=== PATIENT | female | born 1965 | race Caucasian/White ===

== ENCOUNTER 2019-10-31 10:58 | Outpatient (RCR) | payer MEDICARE, SELFPAY ==
--- NOTE | 2019-10-31 12:58 | PTOPEVAL ---
Thank you for referring this patient to [facility]. Please review, sign, date and return this plan of care YECENIA. I agree with and certify that the following plan of care is medically necessary. Referring Physician Date Admitting Provider: Attending Provider: Sofia Adorno MD Referring Provider: *PT Outpatient Evaluation Start: 10/31/19 11:08 Freq: Status: Active Protocol: Document 10/31/19 11:08 NEILMARJMarielena (Rec: 10/31/19 12:49 ASHISH [id number]) Therapy Assessment Status Assessment Status Assessment Status Evaluation Evaluation Information Problem Diagnosis neck pain Onset 08/30/19 Subjective Information Pt. reports 2 months of right Query Text:As Reported By Patient/ sided neck pain. She reports Family that has trouble turning her head to the right. Pt. reports that she underwent MRI which revealed stenosis at C6 -7. She reports that she has been doing neck exercise with mild relief. She reports that she notes pain with nothing imparticular except for turning her head to the right. She reports that driving is difficult due to inability to turn her head. She reprots that her goal for therapy is to reduce her pain. Prior Level of Function Activity Level (Last 3 Months) Hand Dominance Ambidextrous Activity of Daily Living Ability Independent Indoor/Home Mobility Independent Community Mobility Independent Stairs Ability Independent Functional Cognition (Planning, Shopping Independent , Taking Medications) Cooking Yes Cleaning Yes Laundry Yes Shopping Yes Driving Yes Comments Additional Prior Level of Function Pt. has hx of MS. Comments Pain Assessment Timing of Pain Assessment Timing of Pain Assessment Pre-Treatment Pain Scale Pain Scale Used Numeric (1 - 10) Self Report Pain Assessment Right Neck Reported Pain Level 5 Pain Frequency Continuous Current Pain Intensity 5 Lowest Pain Intensity 5 Greatest Pain Intensity 10 Other Pain Aggravating Factors turning the head to the right Pain Relief Interventions Used By Heat Patient
--- NOTE | 2019-11-28 12:00 | PCPTNOTE ---
11/28/19-pt called and cancelled apt secondary to the coronavirus scare. pt will call back next week to possibly reschedule.-HOSEA.
== END 2019-12-28 10:33 | disposition home or self-care (01) ==
LOC: CHSPT 10:58
PROVIDERS: PCP Internal Medicine; Visit Provider Internal Medicine
DX: M54.2 Cervicalgia (principal); M47.892 Other spondylosis, cervical region
CPT/HCPCS: 97014; 97110; 97140; 97161; G0283

== ENCOUNTER 2020-02-14 13:16 | Outpatient (CLI) | payer MEDICARE, SELFPAY ==
--- NOTE | ~2020-02-14 | MR_ITS ---
EXAMINATION: MR brain/brain stem wo/w con EXAM DATE: 02/14/2020 16:04 INDICATION: Multiple sclerosis. TECHNIQUE: Magnetic resonance imaging (MRI) of the brain/brain stem obtained without contrast. Sagit vandana T1, axial diffusion, gradient echo (T2*), T1, T2, FLAIR sequences obtained. Patient was then inj ected with 17 cc intravenous Multihance contrast. Axial and coronal postcontrast T1 weighted sequence s obtained. Comparison is made to prior examination from 12/22/2018. FINDINGS: There is extensive periventricular predominant white matter T2 hyperintensity was thinning of the corpus callosum and dilated ventricular system. Some of these structures involve the corpus ca llosum, consistent with the history provided. There are no areas of abnormal enhancement on the post contrast images, resolution of previously seen active enhancing lesions. Otherwise, no appreciable in terval change. Flow voids are seen in the cerebral arteries on the T2 weighted sequences consistent w ith their expected patency. There are no areas of restricted diffusion to suggest acute infarction. N o extra-axial collections or acute intracranial hemorrhage. No brain mass. IMPRESSION: Resolution of previously seen enhancing multiple sclerosis plaques. Otherwise stable exa m. Reviewed, dictated and finalized at location A. IMPRESSION: Resolution of previously seen enhancing multiple sclerosis plaques . Otherwise stable exam.
--- NOTE | ~2020-02-14 | MR_ITS ---
EXAMINATION: MR cervical spine wo/w con EXAM DATE: 02/14/2020 16:03 INDICATION: Multiple sclerosis. TECHNIQUE: Multi-sequential, multiplanar MR images of the cervical spine were obtained without contra st. Axial T2, axial T2 MERGE sequence. Sagittal T1, T2, T2 fat saturation images also obtained. Com parison is made to prior examination from 10/05/2019. FINDINGS: EXAMINATION: MR cervical spine wo/w con EXAM DATE: 02/14/2020 16:03 INDICATION: Cervical spondylosis, neck pain. TECHNIQUE: Multi-sequential, multiplanar MR images of the cervical spine were obtained without contra st. Axial T2, axial T2 MERGE sequence. Sagittal T1, T2, T2 fat saturation images also obtained. Com parison is made to prior examination from 12/22/2018. FINDINGS: There is no significant interval change. On sagittal sequence within the right side of the spinal cord at the T1 level there is vague region of slightly increased T2 signal intensity measu ring about 4 by 9 mm in craniocaudal dimension, probably sequela from old multiple sclerosis. Similar appearing in size and appearing region in the left side of the spinal cord at C1. Again there is mil d reversal of normal cervical lordosis. There is moderate disc disease at C5-6 and 6-7, mild to moder ate at C3-4 and 4-5. Cervicomedullary junction is normal in appearance. The vertebral bodies are alig art in the AP dimension. There are no suspicious marrow signal abnormalities. Paraspinal soft tissue is unremarkable. There are no areas of abnormal enhancement on the post contrast images. Level by level evaluation: C2-C3: There is a minimal diffuse disc bulge. Uncovertebral joint arthropathy: Mild left. Facet joint arthropathy: Mild. Neural foraminal stenosis: No stenosis. Central canal stenosis: No stenosis. C3-C4: There is a mild diffuse disc bulge. Uncovertebral joint arthropathy: Mild bilateral. Facet joint arthropathy: Mild bilateral. Neural foraminal stenosis: No stenosis. Central canal stenosis: Mild. C4-C5: There is a mild diffuse disc bulge. Uncovertebral joint arthropathy: Mild bilateral. Facet joint arthropathy: Mild bilateral. Neural foraminal stenosis: No stenosis. Central canal stenosis: Mild. C5-C6: There is a mild to moderate diffuse disc bulge. Uncovertebral joint arthropathy: Mild to moderate right, mild left. Facet joint arthropathy: Mild bilateral. Neural foraminal stenosis: Mild to moderate right. Central canal stenosis: Mild. C6-C7: There is a mild diffuse disc bulge. Uncovertebral joint arthropathy: Mild to moderate bilateral. Facet joint arthropathy: Mild. Neural foraminal stenosis: Moderate left, mild to moderate right. Central canal stenosis: Mild. C7-T1: Disc does not extend beyond the endplate margin. Uncovertebral joint arthropathy: None. Facet joint arthropathy: Mild bilateral. Neural foraminal stenosis: No stenosis. Central canal stenosis: No stenosis. No appreciable interval change compared to prior study. IMPRESSION: 1. 2 small spinal cord lesions consistent with quiescent multiple sclerosis. No enhancing lesions or interval change. 2. C6-7 moderate left neural foraminal stenosis, lesser spondylosis at other levels. Reviewed, dictated and finalized at location A. IMPRESSION: 1. 2 small spinal cord lesions consistent with quiescent multiple sclerosis. N o enhancing lesions or interval change. 2. C6-7 moderate left neural foraminal stenosis, lesser spondylosis at other l evels.
--- NOTE | ~2020-02-14 | MR_ITS ---
EXAMINATION: MR thoracic spine wo/w con EXAM DATE: 02/14/2020 16:02 INDICATION: Multiple sclerosis. TECHNIQUE: Multi-sequential, multiplanar MR images of the thoracic spine were obtained without contra st. Sagittal T1, T2, T2 fat saturation, axial T2 weighted images reviewed. Axial T1 weighted sequenc e. Patient was then injected with 17 mL Multihance intravenous contrast and reimaged. Postcontrast axial and sagittal T1-weighted fat saturation sequences were obtained. Comparison is made to prior ex amination from 12/22/2018. FINDINGS: There are small T2 hyperintense regions within the right posterior lateral aspect of the sp inal cord at T1 and T3 as previously seen. Several other vague hyperintensities located more inferior ly are also suspected, difficult to specifically confirm or exclude whether or not these were present on prior study. Appearance is consistent with quiescent multiple sclerosis. No enhancing lesions to suggest active disease. There is mild thoracic spondylosis without stenosis. There are no suspicious marrow signal abnormalit ies. Paraspinal soft tissue is unremarkable. There are no areas of abnormal enhancement on the post c ontrast images. IMPRESSION: Several chronic appearing small vague thoracic cord signal abnormalities likely quiescent multiple sclerosis. Reviewed, dictated and finalized at location A. IMPRESSION: Several chronic appearing small vague thoracic cord signal abnormal ities likely quiescent multiple sclerosis.
[2020-02-14 14:24] LABS: Estimated Glomerular Filt Rate > 60
== END 2020-02-14 13:17 | disposition home or self-care (01) ==
PROVIDERS: PCP Internal Medicine; Visit Provider Psychiatry & Neurology Neurology
DX: G35 Multiple sclerosis (principal); M48.02 Spinal stenosis, cervical region
CPT/HCPCS: 36415; 70553; 72156; 72157; A9577

== ENCOUNTER 2020-04-09 10:25 | Outpatient (CLI) | payer MEDICARE, SELFPAY ==
--- NOTE | ~2020-04-09 | XR_ITS ---
EXAMINATION: XR lumbar spine 2-3V DATE: 04/09/2020 10:48 INDICATION: Back pain TECHNIQUE: Anteroposterior and lateral views of the lumbar spine, and cone-down lateral view of the l umbosacral junction were obtained. COMPARISON: None. FINDINGS: There is no fracture, dislocation, or subluxation. The vertebral body heights and alignment are normal. There is mild loss of intervertebral disc space height at L3-4 and L5-S1. Degenerative o steophytes project from the anterior endplates of multiple vertebral bodies. There is moderate lower lumbar spondylosis. A large volume of colonic stool is present. IMPRESSION: 1. Mild lumbar spondylosis without acute findings. Reviewed, dictated and finalized at location B.
--- NOTE | ~2020-04-09 | XR_ITS ---
EXAMINATION: XR ankle RT min 3V INDICATION: Right ankle pain TECHNIQUE: Four views of the right ankle are obtained. COMPARISON: None available FINDINGS: There is no fracture, dislocation, or subluxation. A plantar calcaneal enthesophyte is note d. The bones, soft tissues, and joint spaces are otherwise normal. IMPRESSION: 1. No acute osseous abnormality. Reviewed, dictated and finalized at location B.
== END 2020-04-09 10:26 | disposition home or self-care (01) ==
LOC: CHSIMG 10:27
PROVIDERS: PCP Internal Medicine; Visit Provider Internal Medicine
DX: S99.911A Unspecified injury of right ankle, initial encounter (principal); S39.92XA Unspecified injury of lower back, initial encounter
CPT/HCPCS: 72100; 73610

== ENCOUNTER 2020-04-19 16:17 | Outpatient (RCR) | payer MEDICARE, SELFPAY ==
--- NOTE | 2020-04-27 11:01 | PCPTNOTE ---
04/27/20- pt cancelled apt yesterday. -
--- NOTE | 2020-05-15 17:13 | PTOPEVAL ---
Thank you for referring Lashell Tucker to [facility].? The patient is scheduled to be seen for therapy? ____x/week for ___ weeks. Please review, sign, date and return this plan of care YECENIA. I agree with and certify that the following plan of care is medically necessary. Referring Physician Date Admitting Provider: Attending Provider: Sofia Adorno MD Referring Provider: *PT Outpatient Evaluation Start: 04/19/20 16:29 Freq: Status: Active Protocol: Document 04/19/20 16:[address] [facility] (Rec: 04/19/20 16:[address] [facility] [id number]) Therapy Assessment Status Assessment Status Assessment Status Evaluation Evaluation Information Problem Diagnosis low back and R ankle pain Onset 04/09/20 Subjective Information patient reports she fell in Query Text:As Reported By Patient/ her garage about 3 week ago. Family she reports she was not using her walker at the time. she reports she was holding onto her when she tripped over carpet. she reports she now has pain in the low back and the R ankle. she reports her R ankle/foot was bent behind her. she reports she had imaging of the back and ankle. she presents with arthritis. Prior Level of Function Comments Additional Prior Level of Function prior to her fall, no ankle Comments pain and minimal back pain. she reports she was able to transition in and out of bed independently without pain. she reports now she has increased pain getting in and out of bed. she reports she also has difficutly getting up and moving from sitting or resting. she reports increased pain in the ankle with movement into DF and walking. Pain Assessment Timing of Pain Assessment Timing of Pain Assessment Assessment Pain Scale Pain Scale Used Numeric (1 - 10) Self Report Pain Assessment Right Ankle(s) Reported Pain Level 2 Lowest Pain Intensity 2 Greatest Pain Intensity 10 Lower Back Reported Pain Level 3 Lowest Pain Intensity 1 Greatest Pain Intensity 9 Pain Score Pain Score 3,2: Self Report Lower Extremity Range of M
--- NOTE | 2020-06-06 11:56 | PTOPEVAL ---
Thank you for referring Lashell Tucker to [facility].? The patient is scheduled to be seen for therapy? ____x/week for ___ weeks. Please review, sign, date and return this plan of care YECENIA. I agree with and certify that the following plan of care is medically necessary. Referring Physician Date Admitting Provider: Attending Provider: Sofia Adorno MD Referring Provider: *PT Outpatient Evaluation Start: 04/19/20 16:29 Freq: Status: Active Protocol: Document 06/06/20 11:04 [facility] (Rec: 06/06/20 11:54 [facility] [id number]) Therapy Assessment Status Assessment Status Assessment Status Re-evaluation Evaluation Information Problem Diagnosis low back and R ankle pain Subjective Information patient reports she feels Query Text:As Reported By Patient/ worse in the top of her R Family ankle. she reports it will continually get stiff with any rest, and makes it very hard to get up and walk or stand initially. Pain Assessment Timing of Pain Assessment Timing of Pain Assessment Assessment Pain Scale Pain Scale Used Numeric (1 - 10) Self Report Pain Assessment Right Ankle(s) Reported Pain Level 8 Lowest Pain Intensity 5 Greatest Pain Intensity 9 Lower Back Reported Pain Level 0 Pain Score Pain Score 8,0: Self Report Lower Extremity Range of Motion Ankle/Foot Range of Motion Bilateral Foot/Toe Range of Motion Comments R ankle arom DF = 15 degrees, PF = 55 degrees Lower Extremity Muscle Strength Testing General Lower Extremity Strength Gross Lower Extremity Strength 5/5 R ankle strength overall Muscle Length Testing Muscle Length Testing Gastrocnemius Length (L) WFL,(R) Mild Tightness Gait Assessment Gait Assessment Additional Ambulation Comments decreased R LE stance time and weight bearing General Exercise General Exercises Exercise Description -prom of right foot x 15 min Query Text:Record Sets, Reps, -5 minutes re-evaluation Resistance, and Position -4 way ankle TB blue x20 each Modalities Electrical Stimulation Right Dorsal Foot Stimulation Type Interferential Equipment Setting Preset 1 Treatment Duration (minutes) 15 In Conjunctions With Hot Pack Patient Position Semi-Reclined Reason For Treatment Pain Management,Soft Tissue Tightness/Spasms Response to Treatment for Contributing Reduce Pain,Reduce Soft Tissue to Therapeutic Activity Tightness/Spasms PT Clinical Summary Clinical Summary Protocol: PTEVCODE PT Clinical Summary mrs. tucker presents this
== END 2020-06-06 23:59 | disposition home or self-care (01) ==
LOC: CHSPT 16:17
PROVIDERS: PCP Internal Medicine; Visit Provider Internal Medicine
DX: M54.5 Low back pain (principal); M53.3 Sacrococcygeal disorders, not elsewhere classified; M25.571 Pain in right ankle and joints of right foot
CPT/HCPCS: 97014; 97110; 97140; 97161; G0283

== ENCOUNTER 2020-06-25 10:31 | Outpatient (CLI) | payer MEDICARE, SELFPAY ==
[2020-06-25 10:59] LABS: Basophils Percent Auto 0.5 % (0.2-1.2); Eosinophils Percent Auto 0.7 % (0-4.4); Hematocrit 39.8 % (37.0-47.0); Hemoglobin 13.2 g/dL (12.0-15.0); Immature Granulocyte Absolute 0.01 K/mm3 (0.00-0.031); Immature Granulocyte Percent A 0.2 % (0-0.5); Lymphocytes Absolute Auto 0.15 K/mm3 (0.9-3.2); Lymphocytes Percent Auto 3.4 % (18.3-44.2); Mean Corpuscular HGB Conc 33.2 g/dl (32-36); Mean Corpuscular Hemoglobin 29.3 pg (26-34); Mean Corpuscular Volume 88.2 fl (80-100); Mean Platelet Volume 10.3 fl (7.4-10.4); Monocytes Absolute Auto 0.5 K/mm3 (0.1-0.6); Monocytes Percent Auto 11.1 % (2.6-8.5); Neutrophils Absolute Auto 3.7 K/mm3 (1.3-6.7); Neutrophils Percent Auto 84.1 % (45.5-73.1); Platelet Count Result 236 k/mm3 (150-375); Red Blood Count 4.51 M/mm3 (4.2-5.4); Red Cell Distribution Width 12.9 % (11.5-14.5); White Blood Count 4.4 K/mm3 (4.5-10.0)
[2020-06-25 12:58] LABS: Alanine Aminotransferase 28 U/L (4-35); Albumin Level 4.1 g/dL (3.5-5.1); Alkaline Phosphatase 108 U/L (38-126); Anion Gap 8 mmol/L (8-16); Aspartate Amino Transferase 28 U/L (14-36); Bilirubin,Total 0.6 mg/dL (0.2-1.3); Blood Urea Nitrogen 18 mg/dL (7-17); Calcium 9.8 mg/dL (8.4-10.2); Carbon Dioxide 27 mmol/L (22-30); Chloride 104 mmol/L (98-107); Estimated Glomerular Filt Rate > 60; Glucose 115 mg/dL (65-105); Potassium 4.5 mmol/L (3.4-5.0); Sodium 139 mmol/L (137-145)
[2020-06-25 13:10] LABS: Immunoglobulin A 59 mg/dL (70-400); Immunoglobulin G 528 mg/dL (700-1600); Immunoglobulin M 163 mg/dL (40-230)
== END 2020-06-25 10:32 | disposition home or self-care (01) ==
LOC: ANHLAB 10:32
PROVIDERS: PCP Internal Medicine; Visit Provider Internal Medicine Hematology & Oncology
DX: D80.9 Immunodeficiency with predominantly antibody defects, unspecified (principal)
CPT/HCPCS: 36415; 80053; 82784; 85025

== ENCOUNTER 2020-11-14 07:06 | Outpatient (CLI) | payer MEDICARE, SELFPAY ==
--- NOTE | ~2020-11-14 | MR_ITS ---
EXAMINATION: MR foot RT wo con, MR ankle RT wo con DATE: 11/14/2020 09:59 INDICATION: Right foot and ankle pain TECHNIQUE: 1. Magnetic resonance imaging (MRI) of the right ankle and hindfoot was performed without intravenous contrast. Sequences included axial, sagittal and coronal PD-weighted FSE and PD-weighted FS FSE. 2. MRI of the right fore/mid foot was performed without intravenous contrast. Sequences included sagi ttal T1-weighted FSE, sagittal fluid sensitive FSE STIR, coronal PD-weighted FS FSE, coronal T1-weigh megha FSE, axial PD-weighted FS FSE, and axial PD-weighted FSE. COMPARISON: None. FINDINGS: Medial ankle ligaments: Deep and superficial deltoid ligaments as well as the spring ligament are normal. Lateral ankle ligaments: The anterior and posterior inferior tibiofibular ligaments are normal. The anterior talofibular, calc aneofibular and posterior talofibular ligaments are normal. Forefoot ligaments: Lisfranc ligament ligament is normal. The collateral ligament complex at the metatarsophalangeal and interphalangeal joints appear normal. Tendons: Achilles tendon is normal. The peroneus longus and brevis tendons are normal. The tibialis anterior a nd extensor hallucis longus and extensor digitorum longus tendons are normal. The tibialis posterior, flexor digitorum longus and flexor hallucis longus tendons are normal. Plantar fascia: Small plantar calcaneal spur at the calcaneal origin of the otherwise normal plantar aponeurosis. No surrounding edema to suggest acute plantar fasciitis. Bones/other: Bone alignment is normal. No fracture or pathologic marrow replacing process. There is mild osteoarth ritis at the second-fourth tarsal metatarsal joints and at the first metatarsophalangeal joint. Likel y secondary subarticular edema at the second tarsal metatarsal joint. Fluid: Physiologic amount fluid in the joint space. No joint effusions, tenosynovitis, bursitis or other abn ormal fluid collections. IMPRESSION: 1. 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 Reviewed, dictated and finalized at location B. [facility] REPORTER IMPRESSION: 1. 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
== END 2020-11-14 07:07 | disposition home or self-care (01) ==
PROVIDERS: PCP Internal Medicine; Visit Provider Internal Medicine
DX: M25.571 Pain in right ankle and joints of right foot (principal); M79.671 Pain in right foot
CPT/HCPCS: 73718; 73721

== ENCOUNTER 2020-11-15 09:12 | Outpatient (CLI) | payer MEDICARE, SELFPAY ==
--- NOTE | ~2020-11-15 | MM_ITS ---
EXAMINATION: MM screening ryan BI w [facility] HISTORY: Screening TECHNIQUE: Craniocaudal and mediolateral oblique 3-D tomosynthesis images were obtained and synthetic 2-D images were generated. CAD analysis was submitted and interpreted. COMPARISON: Comparison to multiple prior studies sequentially, with oldest reviewed study dated 12/2014. BREAST PARENCHYMAL COMPOSITION: There are scattered areas of fibroglandular density. FINDINGS: There is no evidence of suspicious mass, calcification, or architectural distortion to sugg est malignancy in either breast. There has been no suspicious interval change. IMPRESSION: 1. No mammographic evidence of malignancy. 2. Recommend routine screening mammography in one year. BI-RADS Category 1: Negative Reviewed, dictated and finalized at location A. TING ENGINEER
== END 2020-11-15 09:13 | disposition home or self-care (01) ==
PROVIDERS: PCP Internal Medicine; Visit Provider Obstetrics & Gynecology
DX: Z12.31 Encounter for screening mammogram for malignant neoplasm of breast (principal)
CPT/HCPCS: 77063; 77067

== ENCOUNTER 2021-01-11 09:35 | Outpatient (CLI) | payer MEDICARE, SELFPAY ==
--- NOTE | ~2021-01-11 | US_ITS ---
EXAMINATION: US venous doppler [facility] DATE: 01/11/2021 10:15 INDICATION: Left lower limb swelling. TECHNIQUE: Grayscale ultrasound images without and with compression and Doppler ultrasound images of the left lower extremity veins were obtained. COMPARISON: None. FINDINGS: The visualized portions of left common femoral vein, profunda (deep) femoral vein, femoral vein, popl iteal vein, peroneal veins, posterior tibial veins, and greater saphenous vein outflow are patent. IMPRESSION: 1. No deep venous thrombosis. Reviewed, dictated and finalized at location A.
== END 2021-01-11 09:36 | disposition home or self-care (01) ==
LOC: CHSIMG 09:38
PROVIDERS: PCP Internal Medicine; Visit Provider Internal Medicine
DX: M79.89 Other specified soft tissue disorders (principal)
CPT/HCPCS: 93971

== ENCOUNTER 2021-03-25 11:05 | Outpatient (CLI) | payer MEDICARE, SELFPAY ==
[2021-03-25 11:33] LABS: Basophils Percent Auto 0.3 % (0.2-1.2); Eosinophils Percent Auto 0.5 % (0-4.4); Hematocrit 40.3 % (37.0-47.0); Hemoglobin 13.1 g/dL (12.0-15.0); Immature Granulocyte Absolute 0.01 K/mm3 (0.00-0.031); Immature Granulocyte Percent A 0.3 % (0-0.5); Lymphocytes Absolute Auto 0.22 K/mm3 (0.9-3.2); Lymphocytes Percent Auto 5.5 % (18.3-44.2); Mean Corpuscular HGB Conc 32.5 g/dl (32-36); Mean Corpuscular Hemoglobin 28.8 pg (26-34); Mean Corpuscular Volume 88.6 fl (80-100); Mean Platelet Volume 10.1 fl (7.4-10.4); Monocytes Absolute Auto 0.4 K/mm3 (0.1-0.6); Monocytes Percent Auto 10.3 % (2.6-8.5); Neutrophils Absolute Auto 3.3 K/mm3 (1.3-6.7); Neutrophils Percent Auto 83.1 % (45.5-73.1); Platelet Count Result 219 k/mm3 (150-375); Red Blood Count 4.55 M/mm3 (4.2-5.4); Red Cell Distribution Width 12.7 % (11.5-14.5)
[2021-03-25 12:34] LABS: Alanine Aminotransferase 29 U/L (4-35); Albumin Level 4.2 g/dL (3.5-5.1); Alkaline Phosphatase 117 U/L (38-126); Anion Gap 7 mmol/L (8-16); Aspartate Amino Transferase 32 U/L (14-36); Bilirubin,Total 0.8 mg/dL (0.2-1.3); Blood Urea Nitrogen 17 mg/dL (7-17); Calcium 9.8 mg/dL (8.4-10.2); Carbon Dioxide 26 mmol/L (22-30); Chloride 107 mmol/L (98-107); Estimated Glomerular Filt Rate > 60; Glucose 95 mg/dL (65-105); Potassium 4.5 mmol/L (3.4-5.0); Sodium 140 mmol/L (137-145)
[2021-03-25 12:38] LABS: Immunoglobulin A 57 mg/dL (70-400); Immunoglobulin G 510 mg/dL (700-1600); Immunoglobulin M 154 mg/dL (40-230)
== END 2021-03-25 11:06 | disposition home or self-care (01) ==
LOC: ANHLAB 11:09
PROVIDERS: PCP Internal Medicine; Visit Provider Internal Medicine Hematology & Oncology
DX: D80.9 Immunodeficiency with predominantly antibody defects, unspecified (principal)
CPT/HCPCS: 36415; 80053; 82784; 85025

== ENCOUNTER 2021-03-27 11:20 | Outpatient (CLI) | payer MEDICARE, SELFPAY ==
--- NOTE | ~2021-03-27 | XR_ITS ---
EXAMINATION: XR knee LT 3V DATE: 03/27/2021 11:41 INDICATION: Left knee pain and swelling. TECHNIQUE: 3 views of left knee were obtained. COMPARISON: None. FINDINGS: Bone alignment is normal. No fracture. There is mild tricompartmental osteoarthritis. No kn ee joint effusion. There are loose bodies in the joint posteriorly. IMPRESSION: 1. Mild left knee osteoarthritis. 2. Left knee joint loose bodies. Reviewed, dictated and finalized at location A.
== END 2021-03-27 11:21 | disposition home or self-care (01) ==
LOC: CHSIMG 11:23
PROVIDERS: PCP Internal Medicine; Visit Provider Internal Medicine
DX: M25.562 Pain in left knee (principal); M25.462 Effusion, left knee
CPT/HCPCS: 73562

== ENCOUNTER 2021-03-30 09:59 | Outpatient (CLI) | payer MEDICARE, SELFPAY ==
--- NOTE | ~2021-03-30 | MR_ITS ---
EXAMINATION: MR knee LT wo con DATE: 03/30/2021 10:56 INDICATION: Left knee pain and swelling TECHNIQUE: Magnetic resonance imaging (MRI) of the left knee was performed without intravenous contra st. Sequences included coronal PD-weighted FSE, coronal PD-weighted FS FSE, sagittal T2-weighted FSE , sagittal PD-weighted FS FSE and axial PD weighted fat saturated FSE. COMPARISON: Left knee radiographs dated 03/27/2021 FINDINGS: Medial compartment: Medial meniscus is normal. Chondral surface regularity along the anterior to central weightbearing me dial femoral condyle. Cartilage along the medial tibial plateau remains normal. Lateral compartment: Lateral meniscus is normal. Partial-thickness chondral ulceration and deep fissuring along the anteri or to central weightbearing lateral femoral condyle. Additional partial thickness chondral ulceration at the medial side of the lateral tibial plateau along the shoulder of the intercondylar eminence. Patellofemoral compartment: Deep chondral ulceration involving greater than 50% of the cartilage thickness and in places full/saumya r full-thickness at the lateral patellar facet, apical ridge and lateral aspect of the medial facet w hich relatively spares the cephalad portion of the articular cartilage. Additional juxtaposed deep ch ondral ulceration involving the cephalad two thirds of the lateral trochlea. Less severe partial thic kness cartilage loss with some chondral surface irregularity at the medial trochlea and trochlear john ove. Small marginal osteophytes are present. Ligaments and tendons: Anterior and posterior cruciate ligaments are normal. The medial collateral ligament and fibular enrrique ateral ligament complex are normal. The extensor mechanism is normal. The visualized medial and later al hamstring tendons as well as the iliotibial band are normal. Fluid: Physiologic amount of fluid in the joint space. Small Lin's cyst with additional deeper small multi lobulated ganglion cyst which extends anteriorly along the posterior medial margin of the posterior w eightbearing medial femoral condyle. Osseous/other: Normal marrow signal with some red marrow reexpansion in the distal metadiaphyseal region of the femu r. No fracture or pathologic marrow replacing process. Small low signal intensity calcifications post erior to the posterior horn of the medial meniscus, unclear whether it represents dystrophic calcific ation within the capsule or loose osteochondral bodies. Favor the former. IMPRESSION: 1. Tricompartmental osteoarthritis, moderate severity with extensive moderate high-grade chondromalac ia in the patellofemoral compartment and mild with moderate grade chondromalacia in the medial and la teral compartments. 2. Small Lin's cyst. Reviewed, dictated and finalized at location A. IMPRESSION: 1. Tricompartmental osteoarthritis, moderate severity with extensive moderate h igh-grade chondromalacia in the patellofemoral compartment and mild with modera te grade chondromalacia in the medial and lateral compartments. 2. Small Lin's cyst.
== END 2021-03-30 10:00 | disposition home or self-care (01) ==
LOC: CHSIMG 10:01
PROVIDERS: PCP Internal Medicine; Visit Provider Internal Medicine
DX: M25.562 Pain in left knee (principal); M25.462 Effusion, left knee
CPT/HCPCS: 73721

== ENCOUNTER 2021-03-30 22:28 | Emergency (ER) | payer MEDICARE, SELFPAY ==
[2021-03-30 22:45] VITALS: BP 121/72; PULSE 94; RESP 18; TEMP 36.4; O2SAT 94
--- NOTE | 2021-03-30 23:00 | ED.LOWEXIN ---
HPI - Extremity Injury (Lower) General Chief Complaint: Extremity Injury, Lower Stated Complaint: left knee popped had a MRI today Time Seen by Provider: 03/30/21 22:47 Source: patient, family and RN notes reviewed Mode of arrival: ambulatory Limitations: no limitations History of Present Illness HPI Narrative: left knee pain x this PM complaint: knee injury Onset (ago): hour(s) (1) Injury: Left: knee Type of Injury: unknown Place: street/outdoors Severity: moderate Severity scale (1-10): 7 Relieving factors: nothing Exacerbating factors: weight bearing Context: walking Associated symptoms: snap/pop sensation and unable to bear weight Other symptoms: none Related Data Home Medications Medication Instructions Recorded Confirmed atorvastatin 40 mg PO DAILY 03/30/21 03/30/21 ergocalciferol (vitamin D2) 1,250 mcg PO DAILY 03/30/21 03/30/21 paroxetine HCl 40 mg PO DAILY 03/30/21 03/30/21 sumatriptan succinate 100 mg PO PRN PRN 03/30/21 03/30/21 Allergies Allergy/AdvReac Type Severity Reaction Status Date / Time No Known Allergies Allergy Unverified 06/14/15 09:21 Review of Systems Review of Systems: All systems reviewed & are unremarkable except as noted in HPI and below Constitutional: Constitutional: Reports as per HPI and Reports no additional constitutional complaints Eyes: Eyes: Reports as per HPI and Reports no additional eye complaints ENT: Reports system reviewed and no additional complaints, except as documented and Reports as per HPI Cardiovascular: Cardiovascular: Reports as per HPI and Reports no additional cardiovascular complaints Respiratory: Respiratory: Reports as per HPI and Reports no additional respiratory complaints Gastrointestinal: Gastrointestinal: Reports as per HPI and Reports no additional gastrointestinal complaints Genitourinary: Genitourinary: Reports no additional female genitourinary complaints and Reports as per HPI Musculoskeletal: Musculoskeletal: Reports no additional musculoskeletal complaints and Reports as per HPI Integumentary/Breasts: Skin/Breast: Reports system reviewed and no additional complaints, except as docu and Reports as per HPI Neurologic: Reports system reviewed and no additional complaints, except as documented and Reports as per HPI Psychiatric: Psychiatric: Reports no additional psychiatric complaints and Reports as per HPI Endocrine: Endocrine: Reports no additional endocrine complaints and Reports as per HPI Hematologic/Lymphatic: Hematologic/Lymphatic: Reports no additional hematologic/lymphatic complaints and Reports as per HPI Allergic/Immunologic: Allergic/Immunologic: Reports no additional allergic/immunologic complaints and Reports as per HPI [facility] Family History Family History Father Family history of cardiovascular disease Cerebrovascular accident Other Family history of malignant neoplasm Social History Social History Smoking status: Former smoker Alcohol intake: never Exam Const: General: no acute distress and alert Nutritional Appearance: obese Orientation/consciousness: patient oriented x3 HENMT: Head: normal to inspection Ears: external ears normal and TM's normal bilaterally General nose exam: Normal external nose present and Normal nares present Face and sinus: normal facial exam Mouth: Yes moist mucous membranes Eyes: General: appearance normal, both eyes and all related structures Visual Leyva: normal visual leyva by confrontation Conjunctivae: conjunctivae normal Pupils: Equal, round and reactive pupils present EOM: EOMs intact bilaterally Neck: Neck: normal visual inspection and no lymphadenopathy Chest: Chest palpation & inspection: normal inspection of the chest Resp: Effort & Inspection: normal respiratory effort Auscultation: clear to auscultation bilaterally Cardio: Rate: regular ra
[2021-03-30] MEDS: KETOROLAC (*BKC) 60 MG/2 ML VIAL IM (23:08)
[2021-03-30 23:29] VITALS: BP 129/78; PULSE 87; RESP 18; O2SAT 100
== END 2021-03-30 23:32 | disposition home or self-care (01) ==
PROVIDERS: Emergency Provider Emergency Medicine; PCP Internal Medicine
DX: M25.562 Pain in left knee (principal)
CPT/HCPCS: 73721; 96372; 99283; J1885; L1830

== ENCOUNTER 2021-04-17 18:01 | Observation (INO) | payer MEDICARE, SELFPAY ==
--- NOTE | ~2021-04-17 | CT_ITS ---
EXAMINATION: CT brain wo con DATE: 04/17/2021 18:36 INDICATION: Altered mental status. TECHNIQUE: Computed tomography (CT) of the head was performed without intravenous contrast. The mA wa s adjusted according to patient size. Iterative reconstruction technique was employed. The dose-lengt h product was 681.00 mGy-cm. COMPARISON: Head CT 04/16/2018 FINDINGS: Again seen is brain volume loss with ex vacuo dilatation of the bodies and frontal horns of the lateral ventricles. There are scattered areas of low attenuation in the cerebral white matter. T here is no intracranial hemorrhage, acute infarction, or abnormal intracranial mass lesion. The paran david sinuses are clear. The orbits are normal. The mastoid air cells are normal. IMPRESSION: 1. Stable mild nonspecific cerebral white matter disease, which likely represents chronic small vesse l ischemic disease. I discussed this case with Dr. Herrera. Reviewed, dictated and finalized at location A. IMPRESSION: 1. Stable mild nonspecific cerebral white matter disease, which likely represen ts chronic small vessel ischemic disease. I discussed this case with Dr. Caballero ing.
--- NOTE | ~2021-04-17 | US_ITS ---
EXAMINATION: US carotid duplex BI DATE: 04/18/2021 08:16 INDICATION: Encephalopathy. Carotid atherosclerosis and stenosis. TECHNIQUE: Grayscale, color Doppler, and pulsed Doppler images of the cervical carotid arteries were obtained. The degree of vessel stenosis is placed in one of the following categories: normal, <50%, 5 0-69%, >=70% but less than near-occlusion, near-occlusion, or total occlusion. Note that percent sten osis relative to normal distal artery lumen diameter is indirectly measured from velocity measurement s as described by Juan, et al. Radiology 2003; 229:340-346. COMPARISON: 04/23/2012 FINDINGS: RIGHT: The right common carotid artery (CCA) peak systolic velocity (PSV) is 81 cm/s. The right internal car otid artery (ICA) PSV is 59 cm/s. The right ICA end-diastolic velocity (EDV) is 14 cm/s. The right IC A/CCA PSV ratio is 0.7. Grayscale and color Doppler images yield an estimate of <50% diameter reducti on from plaque in the ICA. The external carotid artery (ECA) PSV is 79 cm/s. There is antegrade flow in the right vertebral artery. LEFT: The left CCA PSV is 81 cm/s. The left ICA PSV is 90 cm/s. The left ICA EDV is 27 cm/s. The left ICA/C CA PSV ratio is 1.1. Grayscale and color Doppler images yield an estimate of <50% diameter reduction from plaque in the ICA. The ECA PSV is 79 cm/s. There is antegrade flow in the left vertebral artery. IMPRESSION: 1. <50% stenosis in the right internal carotid artery. 2. <50% stenosis in the left internal carotid artery. Reviewed, dictated and finalized at location A.
[2021-04-17 18:05] VITALS: BP 134/86; PULSE 67; RESP 18; TEMP 36.5; O2SAT 99
[2021-04-17 18:14] LABS: Glucose Point of Care 94 mg/dl (65-105)
--- NOTE | 2021-04-17 18:17 | ECG_ITS ---
Measurements Intervals [place] Rate: 66 P: 145 RI: 169 QRS: -26 QRSD: 87 T: -29 QT: 385 QTc: 403 Interpretive Statements SINUS RHYTHM POSSIBLE LEFT ATRIAL ENLARGEMENT DELAYED PRECORDIAL R/S TRANSITION BORDERLINE T WAVE ABNORMALITY- ANT/INF LEADS BASELINE ARTIFACT- I, II, AVR, AVL BORDERLINE ECG Electronically Signed On 04-18-2021 8:55:27 CDT by Nakul Truong D.O.
[2021-04-17 18:26] LABS: Basophils Absolute Auto 0.02 K/mm3 (0.00-0.10); Basophils Percent Auto 0.4 % (0.0-1.0); Eosinophils Absolute Auto 0.04 K/mm3 (0.02-0.50); Eosinophils Percent Auto 0.7 % (1.0-6.0); Hematocrit 40.2 % (35.0-49.0); Hemoglobin 13.3 g/dL (12.0-15.0); Immature Granulocyte Absolute 0.01 K/mm3 (0.00-0.00); Immature Granulocyte Percent A 0.2 % (0.0-0.0); Lymphocytes Absolute Auto 0.25 K/mm3 (1.10-4.50); Lymphocytes Percent Auto 4.6 % (18.0-42.0); Mean Corpuscular HGB Conc 33.1 g/dL (32.0-36.0); Mean Corpuscular Hemoglobin 29.2 pg (27.0-31.0); Mean Corpuscular Volume 88.2 fL (78.0-102.0); Mean Platelet Volume 10.5 fl (9.2-11.8); Monocytes Absolute Auto 0.55 K/mm3 (0.10-0.90); Neutrophils Absolute Auto 4.6 K/mm3 (1.7-7.2); Neutrophils Percent Auto 84.1 % (50.0-70.0); Platelet Count Result 229 K/mm3 (150-420); Red Blood Count 4.56 M/mm3 (4.20-5.40); Red Cell Distribution Width 12.8 % (11.6-14.4); White Blood Count 5.5 K/mm3 (4.8-10.8)
--- NOTE | 2021-04-17 18:30 | ED.NEUROSD ---
HPI - Neuro Symptoms/Deficit General Chief Complaint: Suspected CVA Stated Complaint: Possible stroke Source: patient Mode of arrival: ambulatory Limitations: no limitations History of Present Illness HPI Narrative: Lashell is a 55F with a PMH of MS and HLD that presented with some AMS that started at 1745. She was reportedly watching TV when she had trouble finding her words. She couldn't remember her husbands name and a few friends names. She stated that she had thoughts but couldn't get the words out. She started improving on the way to the ER. She did not notice any difference in her gait. She and her denied facial droop. Her MS has left her with decreased vision in her right upper outer quadrant and decreased sensation, strength and coordination on the right side. Related Data Home Medications Medication Instructions Recorded Confirmed atorvastatin 40 mg PO DAILY 03/30/21 04/17/21 ergocalciferol (vitamin D2) 1,250 mcg PO DAILY 03/30/21 04/17/21 paroxetine HCl 40 mg PO DAILY 03/30/21 04/17/21 sumatriptan succinate 100 mg PO PRN PRN 03/30/21 04/17/21 fingolimod [Gilenya] 0.5 mg PO DAILY 04/17/21 04/17/21 Allergies Allergy/AdvReac Type Severity Reaction Status Date / Time No Known Allergies Allergy Unverified 06/14/15 09:21 Review of Systems Constitutional: Constitutional: Reports as per HPI and Reports no additional constitutional complaints Eyes: Eyes: Reports as per HPI ENT: Reports system reviewed and no additional complaints, except as documented Cardiovascular: Cardiovascular: Reports no additional cardiovascular complaints Respiratory: Respiratory: Reports no additional respiratory complaints Gastrointestinal: Gastrointestinal: Reports no additional gastrointestinal complaints Genitourinary: Genitourinary: Reports no additional female genitourinary complaints Musculoskeletal: Musculoskeletal: Reports no additional musculoskeletal complaints Integumentary/Breasts: Skin/Breast: Reports system reviewed and no additional complaints, except as docu Neurologic: Reports as per HPI Psychiatric: Psychiatric: Reports no additional psychiatric complaints Endocrine: Endocrine: Reports no additional endocrine complaints Hematologic/Lymphatic: Hematologic/Lymphatic: Reports no additional hematologic/lymphatic complaints Allergic/Immunologic: Allergic/Immunologic: Reports no additional allergic/immunologic complaints [facility] Family History Family History Father Family history of cardiovascular disease Cerebrovascular accident Other Family history of malignant neoplasm Social History Social History Smoking status: Former smoker Alcohol intake: never Exam Const: General: cooperative, healthy appearing, comfortable and no acute distress Other: Ambulates with a rolling walker HENMT: Head: normal to inspection Other: atraumatic Eyes: General: appearance normal, both eyes and all related structures Neck: Neck: normal visual inspection Chest: Chest palpation & inspection: normal inspection of the chest Resp: Effort & Inspection: normal respiratory effort and able to speak in complete sentences Auscultation: clear to auscultation bilaterally Percussion: percussion normal Cardio: Rate: regular rate Rhythm: regular rhythm Other: no murmur Skin: General skin exam: normal color, no rashes or lesions noted and elasticity normal Neuro: General: oriented to person, oriented to place, oriented to time, gait normal (Her gait is at her normal per her ), moves all extremities and Normal light touch and pain sensation (Normal on the left, slightly decrased on the right but this is her normal ) Cranial nerves: Yes CN's II-XII intact bilaterally, Yes Facial sensation intact/muscles of mastication intact and Yes Equal, round and reactive pupils present Cognition (Neuro): normal c
[2021-04-17 18:42] LABS: Albumin Level 3.9 g/dL (3.4-5.0); Anion Gap 12 mmol/L (8-16); Blood Urea Nitrogen 18 mg/dL (7-18); Calcium 9.2 mg/dL (8.5-10.1); Carbon Dioxide 26 mmol/L (21-32); Chloride 103 mmol/L (98-108); Estimated CRCL calculation 67 ml/min; Estimated Glomerular Filt Rate > 60; Glucose 97 mg/dL (70-99); Osmolality Calculated 293 mOsm/kg (285-295); Salicylate 0.7 mg/dL (2.8-20.0); Sodium 141 mmol/L (136-145)
[2021-04-17 18:43] LABS: INR 0.9; Prothrombin Time 10.1 Seconds (9.50-12.10)
[2021-04-17 19:00] VITALS: BP 117/66; PULSE 65; RESP 16; O2SAT 96
[2021-04-17 19:01] LABS: Add Urine Microscopic? YES; Appearance Urine Clear (Clear); Bilirubin Urine Negative (Negative); Blood Urine 1+ (Negative); Color Urine Light Yellow (Yellow); Glucose Urine UA Negative (Negative); Ketones Urine Negative (Negative); Leukocyte Esterase Ur Negative LEU/UL (Negative); Nitrate Urine Negative (Negative); Protein Urine Negative (Negative); Urobilinogen Urine 0.2 mg/dL (0.2-1.0); pH Urine 5.5 (5.0-8.0)
[2021-04-17 19:08] LABS: Amphetamine Screen Urine Negative (Negative); Barbiturate Screen Urine Negative (Negative); Benzodiazepines Screen Urine Negative (Negative); Cannabinoid Screen Urine Negative (Negative); Cocaine Screen Urine Negative (Negative); Methadone Screen Urine Negative (Negative); Opiate Screen Urine Negative (Negative); Phencyclidine Screen Urine Negative (Negative)
[2021-04-17 19:11] LABS: Alanine Aminotransferase 30 U/L (14-59); Alkaline Phosphatase 119 U/L (46-116); Ammonia 10 umol/L (11-32); Aspartate Amino Transferase 17 U/L (15-37); Bilirubin,Total 0.5 mg/dL (0.00-1.00); Creatine Kinase 59 U/L (26-192); Thyroid Stimulating Hormone 1.68 uIU/mL (0.36-3.74); Total Protein 7.2 g/dL (6.4-8.2); Troponin I 4.2 ng/L (0.00-60.4)
[2021-04-17 19:14] LABS: Acetaminophen < 2 ug/mL (10-30); Ethanol < 3 mg/dL (0-6)
[2021-04-17 19:20] LABS: Bacteria Urine Trace /hpf; Squamous Epithelial Cell Urine Moderate /hpf (Few); WBC Urine 0-3 /hpf (0-3)
[2021-04-17 19:31] VITALS: BMI 34.9
[2021-04-17 19:45] VITALS: BP 117/64; PULSE 88; RESP 20; TEMP 36.1; O2SAT 94
[2021-04-17 19:55] VITALS: BP 119/71; PULSE 62; RESP 18; O2SAT 97
--- NOTE | 2021-04-17 21:32 | PC.NURSE ---
Patient admitted to room 227 per w/c from the ER. Patient SBA, is alert and oriented X 3 with no c/o pain.
[2021-04-17 21:51] VITALS: BMI 34.9
[2021-04-17 21:53] VITALS: PULSE 88
[2021-04-17 21:58] VITALS: BP 117/64; PULSE 88; RESP 20; TEMP 36.1; O2SAT 94
[2021-04-18] VITALS: BP 116/66; PULSE 62; RESP 20; TEMP 36.2; O2SAT 95
[2021-04-18] MEDS: HYDROcodone/acetaminophen (*CRX) 5-325 MG TABLET 1 TAB PO (03:56)
[2021-04-18 04:00] VITALS: BP 101/55; PULSE 65; RESP 18; TEMP 35.9; O2SAT 96
--- NOTE | 2021-04-18 07:15 | PC.NURSE ---
Bedside report completed and board updated. Patient reported that she did not sleep very well, but otherwise was feeling fine, and wanted to go home. Patient stated she did not want her morning medications, and would take them when she got home.
[2021-04-18 07:44] VITALS: BP 113/73; PULSE 66; PULSE 74; RESP 18; TEMP 36.6; O2SAT 95
--- NOTE | 2021-04-18 09:00 | PC.NURSE ---
Patient refused to take any of her morning meds. She stated that she would take all of her medication when she gets home. Explained that it may be awhile before that happens, but patient stated that there weren't any medications that were critical, and it would be fine to wait until she gets home.
--- NOTE | 2021-04-18 10:12 | PM.SD2 ---
Same Day Admit/Disch: HPI History of Present Illness Chief complaint: TIA Narrative: Lashell Tucker is a 55 year old female who is admitted under Observation for TIA. Pt was at home when her symptoms started. She states that her right side felt weaker than usual. Her MS affects her right side mostly. She then noticed she was unable to speak what she was thinking and when she did speak it was not making sense. She also forgot her family members names. PMHx includes: MS, Hyperlipidemia, Migraine, Depression. Pt denies CP, SOB, N/V, loss of bowel or bladder function, fevers, chills, changes in medications or dosages. [facility] Past Medical History Medical History (Updated 04/18/21 @ 10:34 by JOSHUA Em) Body mass index [BMI] 32.0-32.9, adult (11/16/18) delivery delivered Depression Migraine Multiple sclerosis Obesity (BMI 30.0-34.9) Surgical History Surgical History (Updated 04/18/21 @ 10:19 by JOSHUA Em) History of cholecystectomy History of tonsillectomy Family History Family History Father Family history of cardiovascular disease Cerebrovascular accident Other Family history of malignant neoplasm Social History Social History Smoking status: Never smoker Second hand tobacco smoke exposure: No Alcohol intake: never Substance use: never Substance use type: does not use Gender identity (if verbalized by the patient): Female Sexual Orientation (if Verbalized by the Patient): Straight or Heterosexual Spiritual care concerns: No Same Day Admit/Disch: Med Pre-admit Medications Home Medications Medication Instructions Recorded Confirmed Type atorvastatin 40 mg PO DAILY 03/30/21 04/17/21 History ergocalciferol (vitamin D2) 1,250 mcg PO DAILY 03/30/21 04/17/21 History ibuprofen 800 mg PO TID #20 tablet 03/30/21 04/17/21 Rx omeprazole magnesium [Prilosec OTC] 20 mg PO BID #20 tablet 03/30/21 04/17/21 Rx paroxetine HCl 40 mg PO DAILY 03/30/21 04/17/21 History sumatriptan succinate 100 mg PO PRN PRN 03/30/21 04/17/21 History fingolimod [Gilenya] 0.5 mg PO DAILY 04/17/21 04/17/21 History Exam Const: General: cooperative, comfortable, no acute distress, alert, awake and Physically active Nutritional Appearance: obese Limitations: no limitations (has Multiple Sclerosis) HENMT: Head: normal to inspection, normocephalic and atraumatic Ears: hearing grossly normal bilaterally Eyes: General: appearance normal, both eyes and all related structures Alignment and Position: alignment normal Eyelids: eyelids normal Conjunctivae: conjunctivae normal EOM: EOMs intact bilaterally Neck: Neck: full ROM and no JVD Resp: Effort & Inspection: normal respiratory effort Auscultation: clear to auscultation bilaterally Cardio: Rate: regular rate Heart sounds: S1 normal heart sound present and S2 normal heart sound present GI: GI Palp: Yes Soft to palpation and No Tenderness to palpation present (GI) Auscultation: normal bowel sounds Skin: General skin exam: normal color and dry skin Neuro: General: oriented to person, oriented to place, oriented to time, moves all extremities, no focal motor deficits and CN's II-XI intact bilaterally Cognition (Neuro): normal cognition Speech: normal speech Motor exam (neuro): 5/5 motor strength present throughout Sensory Exam: normal sensation Extrem: General: no pedal edema Psych: Appearance: grossly normal Mental Status: mental status grossly normal Speech and movement: Normal speech and movement present Affect: normal affect Attitude: cooperative Thought process: Normal thought process present DS: Data Data Completed and Pending Labs on day of discharge: Labs from last 24 hours 04/17/21 04/17/21 04/17/21 18:17 18:17 18:17 WBC 5.5 RBC 4.56 Hgb 13.3 Hct 40.2 MCV 88.[address]
--- NOTE | 2021-04-18 11:30 | ECHO_ITS ---
Patient Info Name: Lashell Tucker Age: 55 years : 1965 Gender: Female HR: 64 bpm Heart Rhythm: Sinus Rhythm Exam Date: 04/18/2021 10:22 AM Exam Location: [facility] Patient Status: Outpatient Admit Date: 04/17/2021 Staff Ordering Physician: Favio Herrera DO Block Machine Operator: Clementina Stevens RDCS Attending Provider: Favio Herrera DO Referring Physician: Sharon GARCIA; Exam Type: CA echo doppler w bubble study Study Info Indications - TIA Complete two-dimensional, color flow and Doppler transthoracic echocardiogram is performed with agitated saline. Contrast/Agitated Saline Contrast/Ag. Saline: Agitated Saline Amount: 40.00 ml Existing IV Access: Yes IV Access Condition: patent with no signs of infiltration Summary 1. Left ventricular chamber dimension is normal. 2. Left ventricular systolic function is normal, estimated at 60-65%. 3. The left ventricular diastolic function is abnormal. 4. E/e' 12 is mildly elevated. 5. There is trace tricuspid valve regurgitation. 6. No pulmonary hypertension, estimated pulmonary arterial systolic pressure is 29 mmHg. Left Ventricle E/e' 12 is mildly elevated. Left ventricular chamber dimension is normal. Left ventricular systolic function is normal, estimated at 60-65%. The left ventricular diastolic function is abnormal. Right Ventricle Right ventricular chamber dimension is normal. Right ventricular systolic function is normal. Left Atria Left atrial chamber dimension is normal. Right Atria Right atrial chamber dimension is normal. Atrial Septum Agitated saline injection opacified right cardiac chambers without shunt to left cardiac chambers. Intact interatrial septum visualized by agitated saline imaging. Aortic Valve The aortic valve is trileaflet. There is no aortic valve stenosis. There is no aortic valve regurgitation. Pulmonic Valve There is no pulmonic regurgitation. Mitral Valve There is no mitral valve stenosis. There is no mitral valve regurgitation. Tricuspid Valve There is trace tricuspid valve regurgitation. No pulmonary hypertension, estimated pulmonary arterial systolic pressure is 29 mmHg. Pericardium/Pleural There is no pericardial effusion. Inferior Vena Cava Normal inferior vena cava with >50% collapse upon inspiration consistent with normal right atrial pressure, 5 mmHg. Aorta The aortic root size at the sinus of Valsalva is normal. Left Ventricular Outflow Tract Name Value Normal LVOT 2D LVOT Diameter 2.0 cm LVOT Doppler LVOT Peak Velocity 91 cm/s LVOT Peak Gradient 3 mmHg LVOT Mean Gradient 1 mmHg LVOT VTI 20 cm LVOT VTI/AV VTI Ratio 0.5 LVOT Stroke Volume 62 ml Pulmonic Valve Name Value Normal PV
[2021-04-18] MEDS: ACETAMINOPHEN 325 MG TABLET 650 MG PO (11:59)
[2021-04-18 12:00] VITALS: BP 119/79; PULSE 67; PULSE 69; RESP 18; TEMP 36.6; O2SAT 97
--- NOTE | 2021-04-18 12:45 | PC.NURSE ---
patient stated that the tylenol was very effective against her headache. Her pain level dropped down to a 1.
[2021-04-18] MEDS: PARoxetine 20 MG TABLET 40 MG PO (14:06)
--- NOTE | 2021-04-18 14:15 | PC.NURSE ---
Patient was discharged home, accompanied by her . Patient went over all the discharge paperwork, and noted the appointment made for her. Patient was medically stable, and left by private vehicle.
== END 2021-04-18 14:15 | disposition home or self-care (01) ==
LOC: CHSED 19:39 → CHS2ND 19:42
PROVIDERS: Admitting Provider Family Medicine; Emergency Provider Family Medicine; PCP Internal Medicine; Visit Provider Family Medicine
DX: G45.9 Transient cerebral ischemic attack, unspecified (principal); G35 Multiple sclerosis; G43.909 Migraine, unspecified, not intractable, without status migrainosus; E78.5 Hyperlipidemia, unspecified; F32.9 Major depressive disorder, single episode, unspecified; Z79.899 Other long term (current) drug therapy
CPT/HCPCS: 36415; 70450; 80053; 80307; 81001; 82140; 82550; 82948; 84443; 84484; 85025; 85610; 93005; 93306; 93880; 96375; 99285; A9270; G0378

== ENCOUNTER 2021-04-29 10:55 | Outpatient (RCR) | payer MEDICARE, SELFPAY ==
--- NOTE | 2021-04-29 11:40 | PTOPEVAL ---
Thank you for referring Lashell Tucker to [facility].? The patient is scheduled to be seen for therapy? __2__x/week for 8 visits. Please review, sign, date and return this plan of care YECENIA. I agree with and certify that the following plan of care is medically necessary. Referring Physician Date Admitting Provider: Attending Provider: Aj Gregorio MD Referring Provider: *PT Outpatient Evaluation Start: 04/29/21 11:11 Freq: Status: Active Protocol: Document 04/29/21 11:11 ASHISH (Rec: 04/29/21 11:40 ASHISH [id number]) Therapy Assessment Status Assessment Status Assessment Status Evaluation Outpatient Past Medical History Neurological History Hx Multiple Sclerosis Yes Cardiovascular History Hx Cardiac Disorders No Significant History Respiratory History Hx Respiratory Disorders No Significant History Gastrointestinal History Hx Gastrointestinal Disorders No Significant History Genitourinary History Hx Genitourinary Disorders No Significant History Musculoskeletal History Hx Musculoskeletal Disorders No Significant History Hematological History Hx Hematological Disorders No Significant History Endocrine History Hx Endocrine Disorders No Significant History HEENT History Hx HEENT Disorders No Significant History Integumentary History Hx Skin Disorders No Significant History Reproductive History Hx Reproductive Disorders No Significant History Psychosocial History Hx Psychiatric Disorders No Significant History Pain History History of Any Previous or Ongoing No Significant History Instance of Pain Anesthesia History Hx Anesthesia Reactions No Significant History Evaluation Information Problem Diagnosis OA left knee Subjective Information Pt. reports that she injured Query Text:As Reported By Patient/ the left knee on 03/30/21. She Family reports she was walking up stairs and felt a pop in the left knee. She reports that she could not put weight on the left knee. she states that she went to the ER initially and her doctor shortly after. She reports that she has improved since the incident and was in a wc initially. She reports she is now using a cane and has returned to driving. She reports that she had a cortisone injection on 04/22/21 which helped to decrease her
--- NOTE | 2021-07-09 09:54 | PCPTNOTE ---
patient has not been to therapy in over a month. as of this date, all progress towards goals will be taken from her most recent evaluation/note. HANK
== END 2021-05-16 16:07 | disposition home or self-care (01) ==
LOC: CHSPT 10:55
PROVIDERS: Visit Provider Orthopaedic Surgery
DX: M17.12 Unilateral primary osteoarthritis, left knee (principal); M25.562 Pain in left knee
CPT/HCPCS: 97014; 97110; 97161; G0283

== ENCOUNTER 2022-01-09 08:38 | Outpatient (CLI) | payer MEDICARE, SELFPAY ==
--- NOTE | ~2022-01-09 | MM_ITS ---
EXAMINATION: MM screening [facility] BI w [place] HISTORY: Screening TECHNIQUE: Craniocaudal and mediolateral oblique 3-D tomosynthesis images were obtained and synthetic 2-D images were generated. CAD analysis was submitted and interpreted. COMPARISON: Comparison to multiple prior studies sequentially, with oldest reviewed study dated 03/2016. BREAST PARENCHYMAL COMPOSITION: There are scattered areas of fibroglandular density. FINDINGS: There is no evidence of suspicious mass, calcification, or architectural distortion to sugg est malignancy in either breast. There has been no suspicious interval change. IMPRESSION: 1. No mammographic evidence of malignancy. 2. Recommend routine screening mammography in one year. BI-RADS Category 1: Negative Reviewed, dictated and finalized at location A.
== END 2022-01-09 08:39 | disposition home or self-care (01) ==
LOC: ANHIMG 08:39
PROVIDERS: Visit Provider Obstetrics & Gynecology
DX: Z12.31 Encounter for screening mammogram for malignant neoplasm of breast (principal)
CPT/HCPCS: 77063; 77067

== ENCOUNTER 2022-02-07 13:13 | Outpatient (CLI) | payer MEDICARE, SELFPAY ==
--- NOTE | ~2022-02-07 | DEXA_ITS ---
Bone Density Report Name: YUAN JOVEL Age: 56 Sex: Female Ethnicity: White Date of : 1965 Indication: postmenopausal; screening for osteoporosis; prior fracture; Referring Provider: Sofia Adorno Study: Bone densitometry was performed. Exam Date: February 07, 2022 Accession number: [id number] Bone Density: Region BMD T-score Z-score Classification AP Spine(L1, L3, L4) 1.073 0.2 1.4 Normal Femoral Neck (Left) 0.763 -0.8 0.3 Normal Total Hip (Left) 0.930 -0.1 0.7 Normal Femoral Neck (Right) 0.735 -1.0 0.1 Normal Total Hip (Right) 0.908 -0.3 0.5 Normal Femoral Neck Mean 0.749 -0.9 0.2 Normal Total Hip Mean 0.919 -0.2 0.6 Normal World Health Organization criteria for BMD impression classify patients as: Normal (T-score at or above -1.0), Osteopenia (T-score between -1.0 and -2.5), or Osteoporosis (T-score at or below -2.5). 10-year Fracture Risk: FRAX not reported because: All T-scores for Spine Total, Hip Total, Femoral Neck at or above -1.0 Clinical Information Provided by Patient: Has had a low trauma fracture Has used the following medications: Vitamin D Patient maximum height was 62 Menopause Age: 45 No regular weight bearing exercise Drinks caffeinated beverages Onset of menses at age 13 Number of children 2 Impression: The patient has normal bone mass. The patient has risk factors, including: previous fracture. Discussion: BONE DENSITY IS ABOVE THE MINIMUM DESIRABLE LEVEL AT ALL SKELETAL SITES TESTED. This patient?s bone mineral density is above the minimum desirable level (T-score -1.0 or better) at all sites measured. The patient should follow a healthful lifestyle (good nutrition with adequate calcium and vitamin D, and appropriate weight-bearing exercise). Follow-Up: Consider repeating this study in 5 years or sooner if there is some new clinical indication. Reported by: Dr. Nader Saul on 02/07/2022 1:39:00 PM. Reviewed, dictated and finalized at location [facility]
== END 2022-02-07 13:14 | disposition home or self-care (01) ==
LOC: CHSIMG 13:15
PROVIDERS: PCP Internal Medicine; Visit Provider Internal Medicine
DX: M81.0 Age-related osteoporosis without current pathological fracture (principal)
CPT/HCPCS: 77080

== ENCOUNTER 2023-01-14 11:35 | Outpatient (CLI) | payer MEDICARE, SELFPAY ==
--- NOTE | ~2023-01-14 | MM_ITS ---
EXAMINATION: MM screening [facility] BI w [place] HISTORY: Screening mammogram TECHNIQUE: Craniocaudal and mediolateral oblique 3-D tomosynthesis images were obtained and synthetic 2-D images were generated. CAD analysis was submitted and interpreted. COMPARISON: 01/01/2022, 11/15/2020, 10/03/2019 BREAST PARENCHYMAL COMPOSITION: There are scattered areas of fibroglandular density. FINDINGS: No suspicious mass, calcification, or architectural distortion are identified in either sherita ast to suggest malignancy. There has been no suspicious interval change. IMPRESSION: 1. No mammographic evidence of malignancy. 2. Recommend routine screening mammography in one year. BI-RADS Category 1: Negative Reviewed, dictated and finalized at location A.
--- NOTE | ~2023-01-14 | US_ITS ---
EXAMINATION: US retroperitoneal comp DATE: 01/14/2023 12:10 INDICATION: Painless hematuria TECHNIQUE: Multiple ultrasound grayscale images of the kidneys were obtained. COMPARISON: 09/21/2018 FINDINGS: The right kidney measures 11.0 x 4.4 x 4.9 cm. The left kidney measures 9.2 x 4.4 x 5.4 cm. The kidne ys demonstrate normal echogenicity. There is no hydronephrosis in either kidney. No stones identifie d. The bladder is normal. IMPRESSION: 1. Normal kidneys without hydronephrosis. Reviewed, dictated and finalized at location B.
== END 2023-01-14 11:36 | disposition home or self-care (01) ==
LOC: CHSIMG 11:36
PROVIDERS: PCP Internal Medicine; Visit Provider Obstetrics & Gynecology
DX: Z12.31 Encounter for screening mammogram for malignant neoplasm of breast (principal); R31.9 Hematuria, unspecified
CPT/HCPCS: 76770; 77063; 77067

== ENCOUNTER 2024-04-19 14:52 | Outpatient (CLI) | payer MEDICARE, SELFPAY ==
--- NOTE | ~2024-04-19 | XR_ITS ---
EXAMINATION: XR chest 2V Exam Date/Time: 04/19/2024 15:00 CDT HISTORY: chronic cough, tachycardia Comparison: 01/25/2018. RESULT: Lines, tubes, and devices: Cholecystectomy clips. Lungs and pleura: Linear left upper lung opacity. Subsegmental left lower lung airspace disease. Per ipheral right midlung opacity. Cardiomediastinal silhouette: Stable. Other: No acute osseous or upper abdominal finding. IMPRESSION: Findings concerning for left lower lung pneumonia. Remaining pulmonary opacities may represent atelec tasis or additional sites of infection. Recommend radiographic follow-up to ensure resolution. Reviewed, dictated and finalized at location K. IMPRESSION: Findings concerning for left lower lung pneumonia. Remaining pulmonary opacitie s may represent atelectasis or additional sites of infection. Recommend radiogr aphic follow-up to ensure resolution.
[2024-04-19 15:24] LABS: Hematocrit 42.4 % (35.0-49.0); Mean Corpuscular Hemoglobin 28.7 pg (27.0-31.0); Mean Corpuscular Volume 86.9 fL (78.0-102.0); Mean Platelet Volume 10.3 fl (9.2-11.8); Platelet Count Result 218 K/mm3 (150-420); Red Blood Count 4.88 M/mm3 (4.20-5.40); Red Cell Distribution Width 13.1 % (11.6-14.4); White Blood Count 6.5 K/mm3 (4.8-10.8)
[2024-04-19 19:05] LABS: Alanine Aminotransferase 25 U/L (14-59); Albumin Level 3.5 g/dL (3.4-5.0); Alkaline Phosphatase 167 U/L (46-116); Anion Gap 13 mmol/L (4-12); Aspartate Amino Transferase 19 U/L (15-37); Bilirubin,Total 0.5 mg/dL (0.00-1.00); Blood Urea Nitrogen 19 mg/dL (7-18); Calcium 8.6 mg/dL (8.5-10.1); Carbon Dioxide 25 mmol/L (21-32); Chloride 103 mmol/L (98-108); Estimated Glomerular Filt Rate 57; Glucose 103 mg/dL (70-99); Osmolality Calculated 294 mOsm/kg (285-295); Potassium 4.1 mmol/L (3.5-5.1); Sodium 141 mmol/L (136-145); Total Protein 6.4 g/dL (6.4-8.2)
== END 2024-04-19 14:53 | disposition home or self-care (01) ==
PROVIDERS: PCP Internal Medicine; Visit Provider Nurse Practitioner Family
DX: R05.9 Cough, unspecified (principal); R00.0 Tachycardia, unspecified; R91.8 Other nonspecific abnormal finding of lung field
CPT/HCPCS: 36415; 71046; 80053; 85027

== ENCOUNTER 2024-04-25 12:23 | Outpatient (CLI) | payer MEDICARE, SELFPAY ==
--- NOTE | ~2024-04-25 | XR_ITS ---
EXAMINATION: XR chest 2V DATE: 04/25/2024 12:54 INDICATION: Cough and pneumonia. TECHNIQUE: Frontal and lateral views of the chest were obtained. COMPARISON: Chest 2 views 04/19/24 FINDINGS: There are airspace opacities in right midlung zone and left lower lung zone. No pleural eff usion or pneumothorax. The heart size is normal. Surgical clips in the right upper quadrant are likel y from cholecystectomy. IMPRESSION: 1. Airspace opacities in right midlung zone and left lower lung zone with interval improvement, consi stent with pneumonia. Reviewed, dictated and finalized at location A. IMPRESSION: 1. Airspace opacities in right midlung zone and left lower lung zone with inter lucy improvement, consistent with pneumonia.
== END 2024-04-25 12:24 | disposition home or self-care (01) ==
PROVIDERS: PCP Internal Medicine; Visit Provider Internal Medicine
DX: R05.9 Cough, unspecified (principal); J18.9 Pneumonia, unspecified organism; R91.8 Other nonspecific abnormal finding of lung field
CPT/HCPCS: 71046

== ENCOUNTER 2024-05-02 12:37 | Outpatient (CLI) | payer MEDICARE, SELFPAY ==
--- NOTE | ~2024-05-02 | XR_ITS ---
EXAMINATION: XR chest 2V DATE: 05/02/2024 13:16 INDICATION: Cough. Pneumonia. TECHNIQUE: Frontal and lateral views of the chest were obtained. COMPARISON: Chest 2 views 04/25/2024 FINDINGS: There is no pneumonia, pleural effusion, or pneumothorax. The heart size is normal. Surgica l clips in the right upper quadrant are likely from cholecystectomy. IMPRESSION: 1. No acute cardiopulmonary disease. Reviewed, dictated and finalized at location A.
== END 2024-05-02 12:38 | disposition home or self-care (01) ==
LOC: CHSIMG 12:41
PROVIDERS: PCP Internal Medicine; Visit Provider Internal Medicine
DX: J18.9 Pneumonia, unspecified organism (principal)
CPT/HCPCS: 71046

== ENCOUNTER 2024-07-19 08:59 | Outpatient (CLI) | payer MEDICARE, SELFPAY ==
[2024-07-19 09:11] LABS: Add Urine Microscopic? NO; Appearance Urine Clear (Clear); Bilirubin Urine Negative (Negative); Blood Urine Trace-intact (Negative); Color Urine Light Yellow (Yellow); Glucose Urine UA Negative (Negative); Ketones Urine Negative (Negative); Leukocyte Esterase Ur Negative (Negative); Nitrate Urine Negative (Negative); Protein Urine Negative (Negative); Specific Grav Ur <= 1.005 (1.010-1.020); Urobilinogen Urine 0.2 mg/dL (0.2-1.0)
== END 2024-07-19 09:00 | disposition home or self-care (01) ==
PROVIDERS: PCP Internal Medicine; Visit Provider Internal Medicine
DX: N39.0 Urinary tract infection, site not specified (principal)
CPT/HCPCS: 81003; 87086; 87088

== ENCOUNTER 2025-02-10 14:27 | Outpatient (CLI) | payer MEDICARE, SELFPAY ==
--- NOTE | ~2025-02-10 | MM_ITS ---
EXAMINATION: MM screening ryan BI w [facility] HISTORY: Screening TECHNIQUE: Craniocaudal and mediolateral oblique 3-D tomosynthesis images were obtained and synthetic 2-D images were generated. CAD analysis was submitted and interpreted. COMPARISON: Comparison to multiple prior studies sequentially, with oldest reviewed study dated 11/2017. BREAST PARENCHYMAL COMPOSITION: Not Dense: The breasts are almost entirely fatty. FINDINGS: There is no evidence of suspicious mass, calcification, or architectural distortion to sugg est malignancy in either breast. There has been no suspicious interval change. IMPRESSION: 1. No mammographic evidence of malignancy. 2. Recommend routine screening mammography in one year. BI-RADS Category 1: Negative Reviewed, dictated and finalized at location A.
--- OUTSIDE RECORDS SUMMARY | 2025-02-10 14:33 | XMS_ITS | Clinical Summary ---
Author Organization [facility] Address [address] [place] [address] Care Team Providers Care Direct Mail Marketer Name Role Phone Unavailable Primary Care Provider Unavailabl e Source Comments [facility],non-owned Affiliates and Associated Physician Practices is amultiple site organization consisting of ambulatory clinics and hospital sitesin [place], [place]. This disclosure is being madepursuant to the Care Everywhere program and may not contain all information available regarding this patient. Last updated 18.[facility] Allergies No known active allergies Medications * Be aware that medications may not be up to date on this document. Alwaysverify current medications with the patient. atorvastatin (LIPITOR) 40 MG tablet Take 40 mg by mouth Active PARoxetine (PAXIL) 40 MG tablet TAKE 1 TABLET BY MOUTH EVERY DAY 12/20/2017 Active propranolol (INDERAL) 10 MG tablet TAKE 1 TABLET BY MOUTH 2 TIMES EVERY DAY 01/26/2019 Active SUMAtriptan (IMITREX) 100 MG tablet Take 100 mg by mouth Active Social History Tobacco Use Types Packs/Day Years Used Date Smoking Tobacco: Never Smokeless Tobacco: Never Comments No Sex and Gender Information Value Date Recorded Sex Assigned at Not on file Legal Sex Female 8:07 PM CDT Gender Identity Not on file Sexual Orientation Not on file Last Filed Vital Signs Vital Sign Reading Time Taken Comments Blood Pressure 122/70 03/11/2020 11:51 AM CDT Pulse 63 03/11/2020 11:51 AM CDT Temperature 36.7 C (98.1 F) 03/11/2020 11:51 AM CDT Respiratory Rate 16 03/11/2020 11:51 AM CDT Oxygen Saturation 98% 03/11/2020 11:51 AM CDT Inhaled Oxygen Concentration - - Weight 88.5 kg (195 lb) 03/11/2020 11:51 AM CDT Height 157.5 cm (5' 2) 03/11/2020 11:51 AM CDT Body Mass Index 35.67 03/11/2020 11:51 AM CDT Plan of Treatment Health Maintenance Due Date Last Done Comments COLOGUARD (AGES 45-75) - COL ON CA SCREENING 1965 COLON MONITORING 1965 COLONOSCOPY - COLON CA SCREENING 1965 CT COLONOGRAPHY - COLON CA SCREENING 1965 Colorectal Cancer Screening 1965 FIT - COLON CA SCREENING 1965 FLEX SIG - COLON CA SCREENING 1965 MAMMOGRAM 1965 HIV SCREENING 1980 HEPATITIS C SCREENING 06/17/1983 DTAP/TDAP/TD VACCINES (1 - Tdap) 1984 HEPATITIS B VACCINE (1 of 3 - 19+ 3-dose series) 1984 PNEUMOCOCCAL VACCINE 50+ (1 of 1 - PCV) 2015 ZOSTER VACCINE (1 of 2) 2015 SCREENING FOR DIABETES 03/11/2020 COVID-19 VACCINE (1 - 2023-2 5 season) 2024 DEPRESSION SCREENING 09/14/2024 INFLUENZA VACCINE (Season Ended) 2025 HIB VACCINE Aged Out No longer eligi ble based on patient's age to complete this topic HPV VACCINE Aged Out No longer eligi ble based on patient's age to complete this topic MENINGOCOCCAL (Group B) VACC INE SHARED DECISION-MAKING Aged Out No longer eligibl e based on patient's age to complete this topic MENINGOCOCCAL GROUPS A/C/Y/W VACCINE Aged Out No longer eligible b ased on patient's age to complete this topic Insurance MEDICARE MEDICARE
--- OUTSIDE RECORDS SUMMARY | 2025-02-10 14:33 | XMS_ITS | Referral Summary ---
Author Organization [facility] Address [address] [place] [address] Care Team Providers Care Physical Geographer Name Role Phone Sofia Adorno MD Primary Care Provider + [phone] Allergies No known active allergies Medications atorvastatin (LIPITOR) 40 mg tablet Take 40 mg by mouth Active ergocalciferol (VITAMIN D) 50,000 unit capsule TAKE 1 CAPSULE BY MOUTH ONE TIME PER WEEK 11/23/2020 Active PARoxetine (PAXIL) 40 mg tablet Take 40 mg by mouth daily 12/20/2020 Active propranoloL (INDERAL) 10 mg tablet Take 10 mg by mouth 2 (two) times a day 12/04/2020 Active SUMAtriptan (IMITREX) 100 mg tablet TAKE 1/2 TO 1 TABLET AT ONSET OF HEADACHE. MAY REPEAT IN 2 HOURS. MAX OF 2 TABS IN 24 HOURS. 11/25/2020 Active fingolimod (GILENYA) 0.5 mg capsuleIndicati ons:relapsing form of multiple sclerosis Take 0.5 mg by mouth daily Active Active Problems Problem Noted Date Diagnosed Date Multiple sclerosis 02/11/2021 Migraine without aura and wi thout status migrainosus, not intractable 02/11/2021 Mild recurrent major depression 02/11/2021 Ganglion cyst 09/01/2012 Anterior tibialis tendinitis 07/23/2010 Plantar fasciitis 07/23/2010 Peroneal tendinitis 07/23/2010 Disorder of breast 05/27/2010 Social History Tobacco Use Types Packs/Day Years Used Date Smoking Tobacco: Former Personal Safety Answer Date Recorded Getting School Help Needed Not on file 11/10 Comments Unknown Sex and Gender Information Value Date Recorded Sex Assigned at Not on file 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 Gender Identity Not on file Sexual Orientation Not on file Last Filed Vital Signs Vital Sign Reading Time Taken Comments Blood Pressure - - Pulse - - Temperature - - Respiratory Rate - - Oxygen Saturation - - Inhaled Oxygen Concentration - - Weight 90.7 kg (200 lb) 02/06/2021 2:29 PM CDT Height 157.5 cm (5' 2) 02/06/2021 2:29 PM CDT Body Mass Index 36.58 02/06/2021 2:29 PM CDT Plan of Treatment Not on file Insurance MEDICARE [facility] [place] Care Teams Physical Geographer Relationship Specialty Start Date End Date Sofia Adorno MD [address] [place] [address] PCP - General Internal Medicine 10/10/20
--- OUTSIDE RECORDS SUMMARY | 2025-02-10 14:33 | XMS_ITS | Clinical Summary ---
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
--- OUTSIDE RECORDS SUMMARY | 2025-02-10 14:33 | XMS_ITS | Data Portability ---
Author Organization [facility], [address] [facility] Neurology (MD) Address [address] [place] [address] Care Team Providers Care Scientific Informatics Project Leader Name Role Phone JENIFER RAE Primary Care Provider SHAHEEN LOPEZ Neurologist Assessment Encounter Date Assessment Date Assessment LastModified by Organization Details LastModified Time 02/15/2024 02/15/2024 In summary,Clementina'sne urological examination todayshowsigns of right optic neuropathy, bilateral pyramidal, and posterior column signs.When taking to account her clinical course, neurological examination, and neuroimaging findings, the diagnosis of relapsing MS is felt to be correct. Given excellent response, she will continue Ocrevus and this will be her primary immunotherapy. Mechanism of action, risks, and benefits were discussed in detail. Risk for malignancy, and opportunistic infections for were also discussed in detail including risk for progressive multifocal leukoencephalopath y (PML). She was also informed that she may withdraw from any treatment option if she wishes to do so. No treatment, and just observation was also discussed as an option. Patient was highly involved in the entire decision making-process. Continue symptomatic MS therapies.For anxity, and insomnia start clonazepam 1 mg HS, advised not to drive if drowsy. Discussed ampyra to help with gait, balance, and leg stamina,strength. This was denied by her insurance. We will try to appeal. For numbness, tingling, neuralgic pain she will start gabapentin 300 mg nightly at bedtime. I informed her that gabapentin will also help her sleep. The dose of gabapentin will be slowly adjusted depending on her clinical response. Gave her instructions to discontinue trazodone. She is due for blood work so i requested CBC, and CMP to be performed prior to her next appointment. Follow-up brain MRI will be performed yearly in order to evaluate disease activity, and response to treatment. Vitamin D, B12, and biotin supplementation are encouraged to prevent deficiency,and disease progression. Regarding diet, you may try Mediterranean diet. This is a healthier option among patients with MS, because of less inflammatory properties compared to general diets. Mediterranean diet in general consists of olive oils, nuts, legumes, oats, beans, fruits, vegetables, lean meats, whole grains. Hydrate well with water, and try to avoid soda,and sweetened beverages. I discussed that live attenuated vaccine is contraindicated. Answered all questions and concerns. Agreed with plans. Voiced understanding [email or web address] Not available 02/15/2024 13:07:17 05/10/2024 05/10/2024 In summary, Clementina's neurological examination today show signs of right optic neuropathy, bilateral pyramidal, and posterior column signs. Baseline MRI show periventricular, juxtacortical, callosal, brainstem, and cervical cord lesions. When taking to account her clinical course, neurological examination, and neuroimaging findings, the diagnosis of relapsing MS is felt to be correct. Given excellent response, she will continue Ocrevus and this will be her primary immunotherapy. Mechanism of action, risks, and benefits were discussed in detail. Risk for malignancy, and opportunistic infections for were also discussed in detail including risk for progressive multifocal leukoencephalopath y (PML). She was also informed that she may withdraw from any treatment option if she wishes to do so. No treatment, and just observation was also discussed as an option. Patient was highly involved in the entire decision making-process. Continue symptomatic MS therapies. For anxiety, and insomnia start clonazepam 1 mg HS, advised not to drive if drowsy. Discussed ampyra to help with gait, balance, and leg stamina, strength. This was denied by her insurance. We will try to appeal. For numbness, tingling, neuralgic pain she will start gabapentin 300 mg nightly at bedtime. I informed her that gabapentin will also help her sleep. The dose of gabapentin will be slowly adjusted depending on her clinical response. Gave her instructions to discontinue trazodone. She is due for blood work so i requested CBC, and CMP to be performed prior to her next appointment. Follow-up brain MRI will be performed yearly in order to evaluate disease activity, and response to treatment. Vitamin D, B12, and biotin supplementation are encouraged to prevent deficiency,and disease progression. Regarding diet, you may try Mediterranean diet. This is a healthier option among patients with MS, because of less inflammatory properties compared to general diets. Mediterranean diet in general consists of olive oils, nuts, legumes, oats, beans, fruits, vegetables, lean meats, whole grains. Hydrate well with water, and try to avoid soda,and sweetened beverages. I discussed that live attenuated vaccine is contraindicated. Answered all questions and concerns. Agreed with plans. Voiced understanding [email or web address] Not available 05/10/2024 11:19:16 05/24/2024 05/24/2024 In summary, Clementina's neurological examination today show signs of right optic neuropathy, bilateral pyramidal, and posterior column signs. Baseline MRI show periventricular, juxtacortical, callosal, brainstem, and cervical cord lesions. When taking to account her clinical course, neurological examination, and neuroimaging findings, the diagnosis of relapsing MS is felt to be correct.Given adverse reaction to ocrevus, this medication will be discontinued. Will start kesimpta next week after UTI is adequately treated. Mechanism of action, risks, and benefits were discussed in detail. Risk for malignancy, and opportunistic infections for were also discussed in detail including risk for progressive multifocal leukoencephalopath y (PML). She was also informed that she may withdraw from any treatment option if she wishes to do so. No treatment, and just observation was also discussed as an option. Patient was highly involved in the entire decision making-process. Continue symptomatic MS therapies. For anxiety, and insomnia start clonazepam 1 mg HS, advised not to drive if drowsy. Discussed ampyra to help with gait, balance, and leg stamina, strength. This was denied by her insurance. We will try to appeal. For numbness, tingling, neuralgic pain she will start gabapentin 300 mg nightly at bedtime. I informed her that gabapentin will also help her sleep. The dose of gabapentin will be slowly adjusted depending on her clinical response. Gave her instructions to discontinue trazodone. She is due for blood work so i requested CBC, and CMP to be performed prior to her next appointment. Follow-up brain MRI will be performed yearly in order to evaluate disease activity, and response to treatment. Vitamin D, B12, and biotin supplementation are encouraged to prevent deficiency,and disease progression. Regarding diet, you may try Mediterranean diet. This is a healthier option among patients with MS, because of less inflammatory properties compared to general diets. Mediterranean diet in general consists of olive oils, nuts, legumes, oats, beans, fruits, vegetables, lean meats, whole grains. Hydrate well with water, and try to avoid soda,and sweetened beverages. I discussed that live attenuated vaccine is contraindicated. Answered all questions and concerns. Agreed with plans. Voiced understanding [email or web address] Not available 05/24/2024 15:28:34 09/01/2024 09/01/2024 In summary, Clementina's neurological examination today show signs of right optic neuropathy, bilateral pyramidal, and posterior column signs. Baseline MRI show periventricular, juxtacortical, callosal, brainstem, and cervical cord lesions. When taking to account her clinical course, neurological examination, and neuroimaging findings, the diagnosis of relapsing MS is felt to be correct.Given adverse reaction to ocrevus, this medication will be discontinued. Will start kesimpta next week after UTI is adequately treated. Mechanism of action, risks, and benefits were discussed in detail. Risk for malignancy, and opportunistic infections for were also discussed in detail including risk for progressive multifocal leukoencephalopath y (PML). She was also informed that she may withdraw from any treatment option if she wishes to do so. No treatment, and just observation was also discussed as an option. Patient was highly involved in the entire decision making-process. Continue symptomatic MS therapies. For anxiety, and insomnia start clonazepam 1 mg HS, advised not to drive if drowsy. Discussed ampyra to help with gait, balance, and leg stamina, strength. For neurogenic bladder, she will try Ditropan 10 mg XL once daily. For numbness, tingling, neuralgic pain she will start gabapentin 300 mg nightly at bedtime. I informed her that gabapentin will also help her sleep. The dose of gabapentin will be slowly adjusted depending on her clinical response. Gave her instructions to discontinue trazodone. She is due for blood work so i requested CBC, and CMP to be performed prior to her next appointment. Follow-up brain MRI will be performed yearly in order to evaluate disease activity, and response to treatment. Vitamin D, B12, and biotin supplementation are encouraged to prevent deficiency,and disease progression. Regarding diet, you may try Mediterranean diet. This is a healthier option among patients with MS, because of less inflammatory properties compared to general diets. Mediterranean diet in general consists of olive oils, nuts, legumes, oats, beans, fruits, vegetables, lean meats, whole grains. Hydrate well with water, and try to avoid soda,and sweetened beverages. I discussed that live attenuated vaccine is contraindicated. Answered all questions and concerns. Agreed with plans. Voiced understanding [email or web address] Not available 09/01/2024 13:33:51 12/14/2024 12/14/2024 In summary, Clementina's neurological examination today show signs of right optic neuropathy, bilateral pyramidal, and posterior column signs. Baseline MRI show periventricular, juxtacortical, callosal, brainstem, and cervical cord lesions. When taking to account her clinical course, neurological examination, and neuroimaging findings, the diagnosis of relapsing MS is felt to be correct.Given adverse reaction to ocrevus, this medication will be discontinued. She began Kesimpta April 2024, tolerates the medication well without major side effects. Mechanism of action, risks, and benefits were discussed in detail. Risk for malignancy, and opportunistic infections for were also discussed in detail including risk for progressive multifocal leukoencephalopath y (PML). She was also informed that she may withdraw from any treatment option if she wishes to do so. No treatment, and just observation was also discussed as an option. Patient was highly involved in the entire decision making-process. Continue symptomatic MS therapies. For anxiety, and insomnia start clonazepam 1 mg HS, advised not to drive if drowsy. Discussed dalfampridine, BID to help with gait, balance, and leg stamina, strength. For neurogenic bladder, she will try Ditropan 10 mg XL once daily. For numbness, tingling, neuralgic pain she will start gabapentin 300 mg nightly at bedtime. I informed her that gabapentin will also help her sleep. The dose of gabapentin will be slowly adjusted depending on her clinical response. Gave her instructions to discontinue trazodone. She is due for blood work so i requested CBC, and CMP to be performed prior to her next appointment. Follow-up brain MRI will be performed yearly in order to evaluate disease activity, and response to treatment. Vitamin D, B12, and biotin supplementation are encouraged to prevent deficiency,and disease progression. Regarding diet, you may try Mediterranean diet. This is a healthier option among patients with MS, because of less inflammatory properties compared to general diets. Mediterranean diet in general consists of olive oils, nuts, legumes, oats, beans, fruits, vegetables, lean meats, whole grains. Hydrate well with water, and try to avoid soda,and sweetened beverages. I discussed that live attenuated vaccine is contraindicated. Answered all questions and concerns. Agreed with plans. Voiced understanding Not available 12/14/2024 14:14:48 Plan of Treatment Reminders Order Date Submit Date Provider Last Modified By Organization Details Last Modified Time Details Appointments Verol diana Bradshaw t 20.EST 2024 01:00P M Dr. Shaheen Lopez Not available Not available Not available Lab CBC w/ auto diff 2024 025 [facility], [address] [place] [address], [id number], 01/03/2025 08:00:45 CMP, serum or plasma 2024 025 [facility], [address] [place] [address], [id number], 01/03/2025 08:00:24 CBC 2023 024 [facility], [address] [place] [address], [id number], 09/01/2024 14:30:18 CMP, serum or plasma 2023 024 [facility], [address] [place] [address], [id number], 09/01/2024 14:58:24 urinal ysis comple te, reflex cultur e 2023 024 [email or web address], [address] [place] [address], [id number], 05/31/2024 12:19:49 urinal ysis comple te, reflex cultur e 2023 024 [facility] (Lab), [address], [place], [address], 05/17/2024 13:58:47 TB (M tuberc ulosis ), IFN-ga mma+mi togen- gamma, blood 2023 024 [email or web address], [address] [place] [address], [id number], 05/17/2024 10:13:08 CBC w/ auto diff 2023 024 [email or web address], [address] [place] [address], [id number], 05/17/2024 10:13:09 CMP, serum or plasma 2023 024 [email or web address], [address] [place] [address], [id number], 05/17/2024 10:13:09 HIV 1+2 Ab + HIV 1 p24 Ag, panel, IA, serum or plasma 2023 024 [email or web address], [address] [place] [address], [id number], 05/17/2024 10:13:09 hepati tis panel (A+B+C ), acute, serum 2023 024 [email or web address], [address] [place] [address], [id number], 05/17/2024 10:13:09 varice lla zoster virus IgG Ab, QN, IA, serum 2023 024 [email or web address], [address] [place] [address], [id number], 05/17/2024 10:13:09 vitami n B12, serum 2023 024 [facility], [address] [place] [address], [id number], 05/18/2024 07:12:20 1,25-d ihydro xyvita min D, QN, serum or plasma 2023 024 [facility], [address] [place] [address], [id number], 05/17/2024 13:58:47 immuno globul ins iga+ig g+igm, quanti tative , serum 2023 024 [facility], [address] [place] [address], [id number], 05/18/2024 07:12:20 EVELYN virus Ab, qual, IA, serum or plasma 2023 024 [email or web address], [address] [place] [address], [id number], 05/17/2024 10:13:10 CBC 2023 024 [facility], [address] [place] [address], [id number], 02/15/2024 16:02:08 CMP, serum or plasma 2023 024 [facility], [address] [place] [address], [id number], 02/15/2024 15:53:15 Referral None record ed. Procedures None record ed. Surgeries None record ed. Imaging MRI, brain, w/wo contra st 2023 024 [facility] (Radiology), [address] [place] [address], [id number], 06/07/2024 18:06:02 MRI, cervic al spine, w/wo contra st 2023 024 [facility] - [facility] (Radiology), [address] [place] [address], [id number], 06/08/2024 10:04:13 Medication Orders Ditrop an XL 10 mg tablet ,exten ded releas e 2023 024 [id number] [address] [place], [address], 09/01/2024 12:53:42 Ampyra 10 mg tablet ,exten ded releas e 2023 025 [id number], [address] [place], [address], 12/14/2024 14:06:00 cephal exin 500 mg capsul e 2023 024 [id number], [address] [place], [address], 08/17/2024 12:45:35 clonaz epam 1 mg tablet 2023 024 [id number] [address] [place], [address], 02/15/2024 13:05:54 Patient TargetsNo targets recorded. Patient InstructionsNo instructions recorded. Reason for Referral None Reported. Results Created Date Observation Date Name Description Value Unit Range Abnormal Flag Note LastModifiedBy Organization Detail LastModifiedTime 02/15/2002/15/2024 CBC CBC Not Available [facility] [address] [place] [address], [id number], 02/15/2024 16:02:07 02/15/2002/15/2024 CBC WBC 5.6 K/uL 3.8-11 .2 Not Available [facility] [address] [place] [address], [id number], 02/15/2024 16:02:07 02/15/20 24 02/15/2024 CBC RBC 4.53 M/uL 3.92-5 .10 Not Available [facility] [address] [place] [address], [id number], 02/15/2024 16:02:07 02/15/20 24 02/15/2024 CBC HGB 13.0 g/dL 11.8-1 5.3 Not Available [facility] [address] [place] [address], [id number], 02/15/2024 16:02:07 02/15/20 24 02/15/2024 CBC HCT 39.1 % 36.5-4 4.8 Not Available [facility] [address] [place] [address], [id number], 02/15/2024 16:02:07 02/15/20 24 02/15/2024 CBC MCV 86.3 fL 80.0-9 9.0 Not Available [facility] [address] [place] [address], [id number], 02/15/2024 16:02:07 02/15/20 24 02/15/2024 CBC MCH 28.7 pg 25.5-3 3.6 Not Available [facility] [address] [place] [address], [id number], 02/15/2024 16:02:07 02/15/20 24 02/15/2024 CBC MCHC 33.2 g/dL 32.0-3 6.0 Not Available [facility] [address] [place] [address], [id number], 02/15/2024 16:02:07 02/15/20 24 02/15/2024 CBC RDW-SD 40.4 fL 35.1 - 46.3 Not Available [facility] [address] [place] [address], [id number], 02/15/2024 16:02:07 02/15/20 24 02/15/2024 CBC plt 266 K/uL 130-40 0 Not Available [facility] [address] [place] [address], [id number], 02/15/2024 16:02:07 02/15/20 24 02/15/2024 CBC MPV 11.3 fL 9.3-12 .8 Not Available [facility] [address] [place] [address], [id number], 02/15/2024 16:02:07 02/15/20 24 02/15/2024 CMP, serum or plasm a comp. met. panel Not Available [facility] [address] [place] [address], [id number], 02/15/2024 16:39:56 02/15/20 24 02/15/2024 CMP, serum or plasm a sodium 141 mmol/ L 136-14 6 Not Available [facility] [address] [place] [address], [id number], 02/15/2024 16:39:56 02/15/20 24 02/15/2024 CMP, serum or plasm a potassium 4.8 mmol/ L 3.5-5. 1 Not Available [facility] [address] [place] [address], [id number], 02/15/2024 16:39:56 02/15/20 24 02/15/2024 CMP, serum or plasm a chloride 107 mmol/ L 98-110 Not Available [facility] [address] [place] [address], [id number], 02/15/2024 16:39:56 02/15/20 24 02/15/2024 CMP, serum or plasm a CO2 26 mEq/L 20-32 Not Available [facility] [address] [place] [address], [id number], 02/15/2024 16:39:56 02/15/20 24 02/15/2024 CMP, serum or plasm a anion gap 13 mmol/ L 10-22 Not Available [facility] [address] [place] [address], [id number], 02/15/2024 16:39:56 02/15/20 24 02/15/2024 CMP, serum or plasm a glucose 103 mg/dL 70-100 high Not Available [facility] [address] [place] [address], [id number], 02/15/2024 16:39:56 02/15/20 24 02/15/2024 CMP, serum or plasm a calcium 9.5 mg/dL 8.4-10 .4 Not Available [facility] [address] [place] [address], [id number], 02/15/2024 16:39:56 02/15/20 24 02/15/2024 CMP, serum or plasm a total protein 6.2 g/dL 6.4-8. 3 low Not Available [facility] [address] [place] [address], [id number], 02/15/2024 16:39:56 02/15/20 24 02/15/2024 CMP, serum or plasm a albumin 4.4 g/dL 3.5-5. 3 Not Available [facility] [address] [place] [address], [id number], 02/15/2024 16:39:56 02/15/20 24 02/15/2024 CMP, serum or plasm a ALP 145 U/L 44 - 127 high Not Available [facility] [address] [place] [address], [id number], 02/15/2024 16:39:56 02/15/20 24 02/15/2024 CMP, serum or plasm a AST (SGOT) 17 U/L 10-40 Not Available [facility] [address] [place] [address], [id number], 02/15/2024 16:39:56 02/15/20 24 02/15/2024 CMP, serum or plasm a total bilirubin 0.5 mg/dL 0.2-1. 0 Not Available [facility] [address] [place] [address], [id number], 02/15/2024 16:39:56 02/15/20 24 02/15/2024 CMP, serum or plasm a ALT (SGPT) 17 U/L 8-35 Not Available [facility] [address] [place] [address], [id number], 02/15/2024 16:39:56 02/15/20 24 02/15/2024 CMP, serum or plasm a BUN 21 mg/dL 7-21 Not Available [facility] [address] [place] [address], [id number], 02/15/2024 16:39:56 02/15/20 24 02/15/2024 CMP, serum or plasm a creatinine 0.9 mg/dL 0.7-1. 3 Not Available [facility] [address] [place] [address], [id number], 02/15/2024 16:39:56 02/15/20 24 02/15/2024 CMP, serum or plasm a GFR(non-afri can palauan) 68 Not Available [facility] [address] [place] [address], [id number], 02/15/2024 16:39:56 02/15/20 24 02/15/2024 CMP, serum or plasm a GFR() 83 (PROGRAM RESEARCH SPECIALIST CHARLES KIDNE Y DISEA SE HAS A GFR LESS THAN 60 ML/NH N/1.7 3 MM FOR A PERIO D OF THREE MONTH S OR MORE. ) Not Available [facility] [address] [place] [address], [id number], 02/15/2024 16:39:56 02/15/20 24 02/15/2024 CMP, serum or plasm a comp. met. panel Not Available [facility] [address] [place] [address], [id number], 02/15/2024 15:53:15 02/15/20 24 02/15/2024 CMP, serum or plasm a sodium 141 mmol/ L 136-14 6 Not Available [facility] [address] [place] [address], [id number], 02/15/2024 15:53:15 02/15/20 24 02/15/2024 CMP, serum or plasm a potassium PENDIN G Not Available [facility] [address] [place] [address], [id number], 02/15/2024 15:53:15 02/15/20 24 02/15/2024 CMP, serum or plasm a chloride 107 mmol/ L 98-110 Not Available [facility] [address] [place] [address], [id number], 02/15/2024 15:53:15 02/15/20 24 02/15/2024 CMP, serum or plasm a CO2 26 mEq/L 20-32 Not Available [facility] [address] [place] [address], [id number], 02/15/2024 15:53:15 02/15/20 24 02/15/2024 CMP, serum or plasm a anion gap PENDIN G Not Available [facility] [address] [place] [address], [id number], 02/15/2024 15:53:15 02/15/20 24 02/15/2024 CMP, serum or plasm a glucose 103 mg/dL 70-100 high Not Available [facility] [address] [place] [address], [id number], 02/15/2024 15:53:15 02/15/20 24 02/15/2024 CMP, serum or plasm a calcium 9.5 mg/dL 8.4-10 .4 Not Available [facility] [address] [place] [address], [id number], 02/15/2024 15:53:15 02/15/20 24 02/15/2024 CMP, serum or plasm a total protein 6.2 g/dL 6.4-8. 3 low Not Available [facility] [address] [place] [address], 14313, 02/15/2024 15:53:15 02/15/20 24 02/15/2024 CMP, serum or plasm a albumin 4.4 g/dL 3.5-5. 3 Not Available [facility] [address] [place] [address], [id number], 02/15/2024 15:53:15 02/15/20 24 02/15/2024 CMP, serum or plasm a ALP 145 U/L 44 - 127 high Not Available [facility] [address] [place] [address], [id number], 02/15/2024 15:53:15 02/15/20 24 02/15/2024 CMP, serum or plasm a AST (SGOT) 17 U/L 10-40 Not Available [facility] [address] [place] [address], [id number], 02/15/2024 15:53:15 02/15/20 24 02/15/2024 CMP, serum or plasm a total bilirubin 0.5 mg/dL 0.2-1. 0 Not Available [facility] [address] [place] [address], [id number], 02/15/2024 15:53:15 02/15/20 24 02/15/2024 CMP, serum or plasm a ALT (SGPT) 17 U/L 8-35 Not Available [facility] [address] [place] [address], [id number], 02/15/2024 15:53:15 02/15/20 24 02/15/2024 CMP, serum or plasm a BUN 21 mg/dL 7-21 Not Available [facility] [address] [place] [address], [id number], 02/15/2024 15:53:15 02/15/20 24 02/15/2024 CMP, serum or plasm a creatinine 0.9 mg/dL 0.7-1. 3 Not Available [facility] [facility] [address] [place] [address], [id number], 02/15/2024 15:53:15 02/15/20 24 02/15/2024 CMP, serum or plasm a GFR(non-afri can palauan) 68 Not Available [facility] [address] [place] [address], [id number], 02/15/2024 15:53:15 02/15/20 24 02/15/2024 CMP, serum or plasm a GFR() 83 (PROGRAM RESEARCH SPECIALIST CHARLES KIDNE Y [place] SE HAS A GFR LESS THAN 60 ML/NH N/1.7 3 MM FOR A PERIO D OF THREE MONTH S OR MORE. ) Not Available [facility] [address] [place] [address], [id number], 02/15/2024 15:53:15 09/01/20 24 09/01/2024 CBC CBC Not Available [facility] [address] [place] [address], [id number], 09/01/2024 14:30:18 09/01/20 24 09/01/2024 CBC WBC 4.7 K/uL 3.8-11 .2 Not Available [facility] [address] [place] [address], [id number], 09/01/2024 14:30:18 09/01/20 24 09/01/2024 CBC RBC 4.70 M/uL 3.92-5 .10 Not Available [facility] [address] [place] [address], [id number], 09/01/2024 14:30:18 09/01/20 24 09/01/2024 CBC HGB 13.2 g/dL 11.8-1 5.3 Not Available [facility] [address] [place] [address], [id number], 09/01/2024 14:30:18 09/01/20 24 09/01/2024 CBC HCT 40.6 % 36.5-4 4.8 Not Available [facility] [address] [place] [address], [id number], 09/01/2024 14:30:18 09/01/20 24 09/01/2024 CBC MCV 86.4 fL 80.0-9 9.0 Not Available [facility] [address] [place] [address], [id number], 09/01/2024 14:30:18 09/01/20 24 09/01/2024 CBC MCH 28.1 pg 25.5-3 3.6 Not Available [facility] [address] [place] [address], [id number], 09/01/2024 14:30:18 09/01/20 24 09/01/2024 CBC MCHC 32.5 g/dL 32.0-3 6.0 Not Available [facility] [address] [place] [address], [id number], 09/01/2024 14:30:18 09/01/20 24 09/01/2024 CBC RDW-SD 39.8 fL 35.1 - 46.3 Not Available [facility] [address] [place] [address], [id number], 09/01/2024 14:30:18 09/01/20 24 09/01/2024 CBC plt 255 K/uL 130-40 0 Not Available [facility] [address] [place] [address], [id number], 09/01/2024 14:30:18 09/01/20 24 09/01/2024 CBC MPV 10.7 fL 9.3-12 .8 Not Available [facility] [address] [place] [address], [id number], 09/01/2024 14:30:18 09/01/20 24 09/01/2024 CMP, serum or plasm a comp. met. panel Not Available [facility] [address] [place] [address], [id number], 09/01/2024 14:58:24 09/01/20 24 09/01/2024 CMP, serum or plasm a sodium 141 mmol/ L 136-14 6 Not Available [facility] [address] [place] [address], [id number], 09/01/2024 14:58:24 09/01/20 24 09/01/2024 CMP, serum or plasm a potassium 4.4 mmol/ L 3.5-5. 1 Not Available [facility] [address] [place] [address], [id number], 09/01/2024 14:58:24 09/01/20 24 09/01/2024 CMP, serum or plasm a chloride 105 mmol/ L 98-110 Not Available [facility] [address] [place] [address], [id number], 09/01/2024 14:58:24 09/01/20 24 09/01/2024 CMP, serum or plasm a CO2 30 mEq/L 20-32 Not Available [facility] [address] [place] [address], [id number], 09/01/2024 14:58:24 09/01/20 24 09/01/2024 CMP, serum or plasm a anion gap 10 mmol/ L 10-22 Not Available [facility] [address] [place] [address], [id number], 09/01/2024 14:58:24 09/01/20 24 09/01/2024 CMP, serum or plasm a glucose 93 mg/dL 70-100 Not Available [facility] [address] [place] [address], [id number], 09/01/2024 14:58:24 09/01/20 24 09/01/2024 CMP, serum or plasm a calcium 10.2 mg/dL 8.4-10 .4 Not Available [facility] [address] [place] [address], [id number], 09/01/2024 14:58:24 09/01/20 24 09/01/2024 CMP, serum or plasm a total protein 6.1 g/dL 6.4-8. 3 low Not Available [facility] [address] [place] [address], [id number], 09/01/2024 14:58:24 09/01/20 24 09/01/2024 CMP, serum or plasm a albumin 4.6 g/dL 3.5-5. 3 Not Available [facility] [address] [place] [address], [id number], 09/01/2024 14:58:24 09/01/20 24 09/01/2024 CMP, serum or plasm a ALP 122 U/L 44 - 127 Not Available [facility] [address] [place] [address], [id number], 09/01/2024 14:58:24 09/01/20 24 09/01/2024 CMP, serum or plasm a AST (SGOT) 20 U/L 10-40 Not Available [facility] [address] [place] [address], [id number], 09/01/2024 14:58:24 09/01/20 24 09/01/2024 CMP, serum or plasm a total bilirubin 0.3 mg/dL 0.2-1. 0 Not Available [facility] [address] [place] [address], [id number], 09/01/2024 14:58:24 09/01/20 24 09/01/2024 CMP, serum or plasm a ALT (SGPT) 23 U/L 8-35 Not Available [facility] [address] [place] [address], [id number], 09/01/2024 14:58:24 09/01/20 24 09/01/2024 CMP, serum or plasm a BUN 22 mg/dL 7-21 high Not Available [facility] [address] [place] [address], [id number], 09/01/2024 14:58:24 09/01/20 24 09/01/2024 CMP, serum or plasm a creatinine 0.9 mg/dL 0.7-1. 3 Not Available [facility] [address] [place] [address], [id number], 09/01/2024 14:58:24 09/01/20 24 09/01/2024 CMP, serum or plasm a GFR(non-afri can palauan) 68 Not Available [facility] [address] [place] [address], [id number], 09/01/2024 14:58:24 09/01/20 24 09/01/2024 CMP, serum or plasm a GFR() 82 (PROGRAM RESEARCH SPECIALIST CHARLES KIDNE Y [place] SE HAS A GFR LESS THAN 60 ML/NH N/1.7 3 MM FOR A PERIO D OF THREE MONTH S OR MORE. ) Not Available [facility] [address], [id number], 09/01/2024 14:58:24 03/28/20 24 10/13/2022 imagi ng/di agnos tic resul t No observ ation record ed. [email or web address] Not Available 22:26:39 03/28/20 24 10/13/2022 imagi ng/di agnos tic resul t No observ ation record ed. [email or web address] Not Available 22:26:46 06/07/20 24 06/07/2024 MRI, brain , w/wo contr ast [facility] [address] [place] [address] Tele one [phone] Name: Maya Tucker [id number] Exam Date: 2023 Age: 58 Physic luiza: Jovany bennett MD, Shaheen : 1964 Examin ation: MRI BRAIN W AND WO CONTRA ST EXAMIN ATION: MRI brain INDICA TION: MS relaps e RT leg heavy and weak COMPAR KAN: MRI brain 2022. TECHNI QUE: This examin ation includ es T1-bryon ghted images pre- and postco ntrast as well as T2-bryon ghted, FLAIR, gradie nt-ech o, and diffus ion weight ed images . 15 mL of Dotare m gadoli nium were inject ed at the right antecu bital fossa, withou t incide nt. FINDIN GS: There are multif ocal T2/fla ir hyperi ntense signal abnorm alitie s in the perive ntricu lar, deep, and subcor tical white matter of the cerebr al hemisp heres, includ ing involv ement of the corpus callos um, as well as in the brains tem, in keepin g with chroni c demyel inatin g plaque s in the settin g of multip le sclero sis. Plaque burden appear s stable compar ed to the prior MRI from 2022. No new plaque s are seen. There is no pathol ogic enhanc ement to sugges t active demyel inatio n. There is no pathol ogic parenc hymal, leptom eninge al, or pachym eninge al enhanc ement. No restri cted diffus ion to indica te acute infarc tion. No eviden ce of intrac ranial hemorr raheem. No intrac ranial mass lesion or mass effect . There is genera lized cerebr al volume loss greate r than expect ed for age, unchan ged. There is modera te latera l and third ventri culome michelle which is dispro portio shruti to the degree of sulcal wideni ng from volume loss, unchan ged. Basila r cister ns are preser maxine. The major interc ranial vascul ar flow voids are intact . Orbits are unrema rkable . There is mild scatte red inflam matory mucosa l thicke rufino and small retent ion cysts in the parana geovanna sinuse s. No sinus fluid levels . Mastoi d air cells are clear. Bones and extrac ranial soft tissue s are unrema rkable . IMPRES DICK: 1. Stable chroni c demyel inatin g plaque s in the suprat entori al and infrat entori al brain compar ed to prior MRI from 2022. No new plaque s. No eviden ce of active demyel inatio n. 2. Stable latera l and third ventri culome michelle dispro portio shruti to the degree of sulcal wideni ng, possib ly due to normal pressu re hydroc ephalu s or chroni c low-gr alena aquedu ctal stenos is, unchan ged compar ed to prior MRI. Electr onical ly signed in [employer] by: LISBETH WEBBER MD on:05/16 5:02 PM cc: Page PAGE 1 of [facility] 1 [email or web address] [facility] [address] [place] [address], [id number], 06/08/2024 18:34:08 06/08/20 24 06/07/2024 MRI, cervi flip spine , w/wo contr ast [facility] [address] [place] [id number] Teleph one [phone] Name: Maya Tucker [id number] Exam Date: 2023 Age: 58 Physic luiza: Jovany bennett MD, Shaheen : 1964 Examin ation: MRI CERVIC AL W AND WO CONTRA ST EXAM: MRI CERVIC AL W AND WO CONTRA ST HISTOR Y: MS relaps e RT leg heavy and weak COMPAR KAN: MRI cervic al spine 2022. TECHNI QUE: MRI of the cervic al spine before and after the uneven tful intrav enous admini strati on of 15 cc Dotare m at the right antecu bital fossa. T1-bryon ghted, T2-bryon ghted, STIR weight ed, and proton densit y weight ed images were obtain ed. FINDIN GS: Multip le imagin g sequen kasey are motion degrad ed. There is revers al of the cervic al lordos is withou t spondy lolist hesis. Verteb ral body height s are preser maxine. Aside from mild degene rative endpla te signal change s, bone marrow signal charac terist ics are preser maxine. There is degene rative disc desicc ation and disc height loss and anteri or plate osteop hyte format ion, greate st in the mid to lower cervic al levels . Within limits of motion artifa ct, the previo usly noted T2 hyperi ntense chroni c demyel inatin g plaque s in the spinal cord at the C1-2, C2-3, and T1 levels are grossl y stable . No defini te new plaque s are seen. No pathol ogic enhanc ement to sugges t active demyel inatio n. The prever tebral and perive rtebra l soft tissue s are unrema rkable . Retrop haryng eal caroti d course noted. Findin gs by trevon dual disc level are as follow s: C2-3: Mild disc osteop hyte comple x withou t spinal canal or forami nal stenos is. C3-4: Modera te disc osteop hyte comple x result ing in mild spinal canal stenos is with ventra l cord contac t. Uncove rtebra l hypert rophy and facet hypert rophy result ing in modera te right and mild left forami nal stenos is. C4-5: Mild disc osteop hyte comple x result ing in mild canal stenos is with ventra l cord contac t. Mild uncove rtebra l hypert rophy. No forami nal stenos is. C5-6: Modera te disc osteop hyte comple x eccent jamin to the right. Uncove rtebra l hypert rophy and facet hypert rophy. These factor s result in modera te canal stenos is, with ventra l cord flatte rufino, and modera te right forami nal stenos is. C6-7: Mild to modera te disc osteop hyte comple x result ing in mild canal stenos is with ventra l cord contac t. Uncove rtebra l hypert rophy and facet hypert rophy result ing in modera te left forami nal stenos is. C7-T1: No disc bulge or hernia tion. No canal or forami nal stenos is. IMPRES DICK: 1. Motion degrad ed MRI exam. 2. Within limits of motion , chroni c demyel inatin g plaque s in the cervic al and upper thorac ic spinal cord are stable compar ed to prior MRI from 2022. No new plaque s. No active demyel inatio n. 3. Stable degene rative disc diseas e, uncove rtebra l spurri ng, and degene rative facet arthro leah. Degene rative forami nal stenos is rangin g up to modera te at C3-4, C5-6, C6-7. Canal stenos is rangin g up to modera te at C5-6. See above for detail s. Electr onical ly signed in [facility] by: LISBETH WEBBER MD on:05/16 9:01 AM cc: Page PAGE 1 of [facility] 1 [email or web address] [facility] [address] [place] [address], [id number], 06/08/2024 18:34:08 07/12/20 24 08/25/2023 imagi ng/di agnos tic resul t No observ ation record ed. [email or web address] Not Available 05:15:26 Result Notes None recorded. Problems Name Problem SNOMED Code Status Onset Date Resolution Date Notes Provider Name and Address Organization Details Recorded Time Acute urinary tract infection 714845927 Active 024 [facility] 15:53:35 Neurogenic urinary bladder 097147777 Active 024 [facility] 5 15:53:29 Migraine 14129602 Active 025 [facility] 5 14:06:37 Multiple sclerosis 42113699 Active 024 Shaheen gallardo MD [address] [place] [address], [id number], [facility] 4 12:51:08 Anxiety 93800107 Active 024 [facility] 4 19:06:52 COVID-19 954141136 Active Kodi Ross [facility] 15:53:38 Problem Notes None recorded. Procedures Surgical History Date Name Laterality Status Provider Name and Address Organization Details Recorded Time delivery completed Not Available Health Note 02/08/2024 13:55:03 Colonoscopy with biopsy completed Not Available Health Note 02/08/2024 13:55:03 Removal of gallbladder completed Not Available Health Note 02/08/2024 13:55:03 Removal of tonsils completed Not Available Health Note 02/08/2024 13:55:03 Imaging Results None recorded. Procedure Notes None recorded. Medical Equipment None Reported. Allergies No known drug allergies Medications Name Sig Start Date Stop Date Status Note LastModified by Organization Details LastModified Time atorvastati n 40 mg tablet TAKE 1 TABLET BY MOUTH EVERY DAY active Not Available Not Available No t Available oxybutynin chloride ER 10 mg tablet,exte nded release 24 hr TAKE 1 TABLET BY MOUTH EVERY DAY active Not Available Not Available No t Available azithromyci n 250 mg tablet TAKE 1 TABLET BY MOUTH EVERY DAY 05/10 completed Not Available Not Available Not Available fluconazole 150 mg tablet TAKE 1 TABLET BY MOUTH NOW AND REPEAT IN 72 HOURS 12/14 completed Not Available Not Available Not Available sumatriptan 100 mg tablet TAKE 1/2 TO 1 TABLET AT ONSET OF HEADACHE. MAY REPEAT IN 2 HOURS. MAX OF 2 TABS IN 24 HOURS. active Not Available Not Available No t Available meloxicam 15 mg tablet TAKE 1 TABLET (15 MG) BY ORAL ROUTE ONCE DAILY, TAKE MEDICATIO N WITH FOOD active Not Available Not Available No t Available prednisone 20 mg tablet TAKE 3 TABLETS BY ORAL ROUTE ONCE DAILY 05/10 completed Not Available Not Available Not Available clonazepam 1 mg tablet TAKE 1 TABLET BY MOUTH EVERY DAY IN THE EVENING FOR 90 DAYS 2023 active Not Available Not Available Not Avai lable cephalexin 500 mg capsule TAKE 1 CAPSULE BY MOUTH THREE TIMES A DAY FOR 7 DAYS 08/17 completed Not Available Not Available Not Available gabapentin 300 mg capsule Take 1 capsule every day by oral route at bedtime. 09/01 completed Not Available Not Available Not Available ergocalcife rol (vitamin D2) 1,250 mcg (50,000 unit) capsule TAKE 1 CAPSULE BY MOUTH ONE TIME PER WEEK active Not Available Not Available No t Available methylpredn isolone 4 mg tablets in a dose pack TAKE BY MOUTH DIRECTED PER PACKAGE INSTRUCTI ONS 05/10 completed Not Available Not Available Not Available albuterol sulfate HFA 90 mcg/actuati on aerosol inhaler INHALE 2 PUFFS (180 MCG) BY INHALATIO N ROUTE EVERY 4-6 HOURS 05/24 completed Not Available Not Available Not Available paroxetine 40 mg tablet TAKE 1 TABLET BY MOUTH EVERY DAY active Not Available Not Available No t Available fluticasone propionate 50 mcg/actuati on nasal spray,suspe nsion SPRAY 2 SPRAYS (100 MCG) IN EACH NOSTRIL BY INTRANASA L ROUTE ONCE DAILY AT BEDTIME 12/14 completed Not Available Not Available Not Available fluticasone propionate 110 mcg/actuati on HFA aerosol inhaler INHALE 1 PUFF BY MOUTH TWICE A DAY 05/24 completed Not Available Not Available Not Available amoxicillin 875 mg-potassiu m clavulanate 125 mg tablet TAKE 1 TABLET BY MOUTH EVERY 12 HOURS 05/10 completed Not Available Not Available Not Available nitrofurant oin monohydrate /macrocryst als 100 mg capsule TAKE 1 CAPSULE BY MOUTH EVERY 12 HOURS WITH FOOD 09/01 completed Not Available Not Available Not Available dalfampridi ne ER 10 mg tablet,exte nded release,12 hr Take 1 tablet every 12 hours by oral route for 90 days. 2024 active Not Available Not Available Not Avai lable Kesimpta Pen 20 mg/0.4 mL subcutaneou s pen injector Inject 20 mg every month 2024 active Not Available Not Available Not Avai lable Paxlovid 150 mg-100 mg tablets in a dose pack (Moderate Renal Dose) Take 2 tablets twice a day by oral route for 5 days. 04/30 completed Not Available Not Available Not Available Vitals Date Recorded Body height Body mass index (BMI) Body weight Heart rate Oxygen saturation Oxygen saturation in Arterial blood by Pulse oximetry Systolic blood pressure Diastolic blood pressure Provider Name and Address Organization Details Last Updated DateTime 5 157.48 cm 37.5 kg/m2 35423.4 4 g 68 /min 98 % 98 % 116 mm[Hg] 72 mm[Hg] [facility] 5 14:05:40 Date Recorded Body height Body mass index (BMI) Body weight Heart rate Oxygen saturation Oxygen saturation in Arterial blood by Pulse oximetry Systolic blood pressure Diastolic blood pressure Provider Name and Address Organization Details Last Updated DateTime 4 157.48 cm 37.1 kg/m2 15314.2 5 g 78 /min 98 % 98 % 106 mm[Hg] 60 mm[Hg] [facility] 4 12:54:40 Date Recorded Body height Body mass index (BMI) Body weight Heart rate Oxygen saturation Oxygen saturation in Arterial blood by Pulse oximetry Systolic blood pressure Diastolic blood pressure Provider Name and Address Organization Details Last Updated DateTime 4 157.48 cm 37.7 kg/m2 51146.0 3 g 62 /min 97 % 97 % 118 mm[Hg] 64 mm[Hg] [facility] 4 10:33:44 Date Recorded Body height Body mass index (BMI) Body weight Heart rate Respiratory rate Systolic blood pressure Diastolic blood pressure Provider Name and Address Organization Details Last Updated DateTime 4 157.48 cm 37.6 kg/m2 67836.3 1 g 73 /min 18 /min 130 mm[Hg] 84 mm[Hg] Sara Freeman [facility] 4 14:55:45 Date Recorded Body height Body mass index (BMI) Body weight Heart rate Oxygen saturation Oxygen saturation in Arterial blood by Pulse oximetry Systolic blood pressure Diastolic blood pressure Provider Name and Address Organization Details Last Updated DateTime 4 157.48 cm 37.5 kg/m2 94827.4 4 g 71 /min 98 % 98 % 128 mm[Hg] 68 mm[Hg] Jenni Jones [facility] 4 12:36:06 Social History Question Answer Notes LastModified by Organizat ion Details LastModified Time Tobacco Smoking Status Former Smoker Sara Garciademetrius [facility] 05/24/2024 15:03:21 Do You Have An Advance Directive? Yes [email or web address] Information not available 02/08/2024 What Is Your Level Of Caffeine Consumption? Heavy [email or web address] Information not available 02/08/2024 What Is Your Code Status? DNR [email or web address] Information not available 02/08/2024 How Many Times Per Week Do You Exercise? Less Than 1 Time Per Week [email or web address] Information not available 02/08/2024 How Many Packs Per Day (PPD)? 1 PPD Information not available 05/24/2024 How Long Have You Smoked? 10 Years Information not available 05/24/2024 When Did You Quit Smoking? 1990 [email or web address] Information not available 02/08/2024 Do You Have A Medical Power Of Residential Collections? No [email or web address] Information not available 02/08/2024 What Was The Date Of Your Most Recent Tobacco Screening? 02/15/2024 [email or web address] Information not available 02/08/2024 What Is Your Relationship Status? [email or web address] Information not available 02/08/2024 Sex: Unknown Functional Status Question Answer Note LastModified by Organizat ion Details LastModified Time How many times per week do you consume alcohol? Less than 1 time per week [email or web address] Information not available 02/08/2024 Do you use any illicit or recreational drugs? No [email or web address] Information not available 02/08/2024 What is your level of alcohol consumption? Occasional [email or web address] Information not available 02/08/2024 Are you currently employed? 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 None [email or web address] Information not available 02/08/2024 Mental Status None recorded. Family History Relationship Description Onset Age of this Age Resolved Age Notes LastModified by Organization Details LastModified Time Mother Arthritis [email or web address] Not available 02/08/2024 13:55:02 Mother Diabetes mellitus [email or web address] Not available 2023 13:55:02 Mother Cerebrovascu lar accident [email or web address] Not available 13:55:02 Maternal Grandfather Arthritis [email or web address] Not available 01/13 13:55:02 Maternal Grandfather Family history of malignant neoplasm [email or web address] Not available 2023 13:55:02 Maternal Grandmother Family history of malignant neoplasm [email or web address] Not available 2023 13:55:02 Father Heart disease [email or web address] Not available 2023 13:55:02 Father Hypertensive disorder [email or web address] Not available 2023 13:55:02 Father Hypercholest erolemia [email or web address] Not available 2023 13:55:02 Father Cerebrovascu lar accident [email or web address] Not available 13:55:02 Paternal Grandfather Heart disease [email or web address] Not available 2023 13:55:02 Brother Hypertensive disorder [email or web address] Not available 2023 13:55:02 Brother Hypercholest erolemia [email or web address] Not available 2023 13:55:02 Medical History Condition Response Diabetes N Anxiety Disorder N Bleeding Disorder N Attention-deficit Hyperactivity Disorder N High Blood Pressure N Arthritis Y Hyperlipidemia N Cancer N Stroke N Thyroid Problems N Asthma N Depression N COPD N Anemia N Seizures N Heart Disease N Fibromyalgia N Osteoporosis N Kidney Disease N Gynecological HistoryNo gynecological history recorded. Obstetrics History GPAL:G 0 P 0 0 0 0 Immunizations Vaccine Type Date Status Note Provider Nam e and Address Organization Details Recorded Time Influenza, split virus, quadrivalent, preservative 6 completed Sara Freeman [facility] 05/24/2024 14:56:13 Influenza, MDCK, quadrivalent, PF 3 completed Sara Freeman [facility] 05/24/2024 14:56:13 Influenza, MDCK, quadrivalent, PF 2 completed Sara Freeman [facility] 05/24/2024 14:56:13 zoster recombinant 3 completed Sara Freeman [facility] 05/24/2024 14:56:13 zoster recombinant 1 completed Sara Freeman [facility] 05/24/2024 14:56:13 COVID-19, mRNA, LNP-S, PF, 30 mcg/0.3 mL dose 1 completed Sara [facility] 05/24/2024 14:56:13 COVID-19, mRNA, LNP-S, PF, 30 mcg/0.3 mL dose 1 completed [facility] 05/24/2024 14:56:13 COVID-19, mRNA, LNP-S, PF, 30 mcg/0.3 mL dose 1 completed [facility] 05/24/2024 14:56:13 COVID-19, mRNA, LNP-S, bivalent, PF, 30 mcg/0.3 mL dose 2 completed [facility] 05/24/2024 14:56:13 COVID-19, mRNA, LNP-S, PF, nubia-sucrose, 30 mcg/0.3 mL 3 completed [facility] 05/24/2024 14:56:13 pneumococcal polysaccharide PPV23 0 completed [facility] 05/24/2024 14:56:13 pneumococcal polysaccharide PPV23 4 completed [facility] 05/24/2024 14:56:13 Tdap 4 completed [facility] 05/24/2024 14:56:14 Pneumococcal conjugate PCV 13 5 completed [facility] 05/24/2024 14:56:14 Influenza, split virus, trivalent, preservative 3 completed [facility] 05/24/2024 14:56:14 Influenza, split virus, trivalent, preservative 5 completed [facility] 05/24/2024 14:56:14 Influenza, split virus, trivalent, preservative [facility] 14:56:14 Influenza, split virus, trivalent, preservative 2 completed Sara Freeman [facility] 05/24/2024 14:56:14 Influenza, split virus, quadrivalent, PF 1 completed Sara Freeman [facility] 05/24/2024 14:56:14 Influenza, split virus, quadrivalent, PF 8 completed Sara Freeman [facility] 05/24/2024 14:56:14 Influenza, split virus, quadrivalent, 9 completed Sara Freeman [facility] 05/24/2024 14:56:14 Past Encounters Encounter ID Performer Location Encounter Start Date Encounter Closed Date Diagnosis/Indication Diagnosis SNOMED-CT Code Diagnosis ICD10 Code Diagnosis Note [id number] Shaheen Lopez MD [address] Neurology (MD) [address] [facility],[address] [place] [address] 02/15/2024 12:34:10 02/15/2024 15:45:27 Multiple sclerosis [id number] G35 Taking hig h risk medication [id number] 37440 Z91.89 Prophylact ic immunotherapy [id number] Z29.11 Anxiety [id number] F41.9 [id number] [facility] (MD) [address] [place] [address] 05/10/2024 10:23:38 05/10/2024 11:08:11 Multiple sclerosis [id number] G35 Taking hig h risk medication [id number] 21992 Z91.89 Acute urin lance tract infection 285793267 N39.0 Prevention status 384322 002 Z29.89 Additional diagnosis detail: Prophylact ic immunother apy [id number] Shaheen Lopez MD [facility] Neurology (MD) [address] [place] [address] 05/24/2024 14:45:18 05/24/2024 15:34:03 Multiple sclerosis 15416158 G35 Acute urin lance tract infection 426096582 N39.0 Taking hig h risk medication [id number] 55420 Z91.89 [id number] [facility] Lopez [facility] Neurology (MD) [address] [place] [address] 09/01/2024 12:03:42 09/01/2024 12:59:40 Multiple sclerosis 16962442 G35 Clinical finding [id number] Z74.09 Neurogenic urinary bladder 294533103 N31.9 Long-term current use of drug therapy [id number] Z79.899 [id number] MD Isamar Chung [facility] Neurology (MD) [address] [place] [address] 12/14/2024 13:51:05 12/14/2024 15:01:26 Multiple sclerosis 48700203 G35 Taking hig h risk medication [id number] 96670 Z79.899 Health Concerns Section Related Observation LastModified by Organization Detai ls LastModified Time None Recorded Concern Status LastModified by Organization Details LastModified Time None Recorded Advance Directives Directive Y: Payers Insurance Date Sequence Insurance Name Policy Number Policy Hudson Covered Member ID Hudson Member ID Guarantor Name 09/27/2024 2 [employer] - [facility] (MEDICARE SUPPLEMENT) Lashell Meekser [id number] [address] Lashell [place] Garrett 12/15/2024 1 [place] Lashell Meekser [id number] Lashell [place] Tucker Notes Date Note Type Note Provider Name and Address Organization Details Recorded Time 4 text/html Maegan Tucker is a 58-year-old woman, I am seeing for follow-up regarding MS, and assessment of immunotherapy. Previous clinic notes 12/07/23Desonya Tucker is a 58-year-old woman, I am seeing for follow-up regarding MS and assessment of immunotherapyPrevious clinic notes 12/15/22:Social hx: Clementina is a woman from [place]. 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 She e has had no episodes eye trauma or surgery.PMHx: healthy except for MS. She have no history of HIV, hepatitis, TB, or any malignancy. She also denies heart, kidney, and liver disease.Family hx:. Her mother passed from complications of stroke. She also had type 2 diabetes. Her dad also from stroke he had hypertension, coronary artery disease.Clinical course:She goes by Clementina. develop balance issues in 1994. A few months after delivering her baby in March 1997, she developed right optic neuritis. Treated with intravenous Solu-Medrol. Duration of going back to baseline within 2 weeks. Brain MRI, and lumbar puncture was done at that time which apparently were consistent with multiple sclerosis. 1996, she was started on Avonex. Bridge, she had 3 relapses following Avonex during the first 5years therapy. Because of poor clinical response to Avonex, she also tried Copaxone and Betaseron. In 2016, it was thoiught that he disease have progressed therefore other DMTs were discussed. Her disease modifying therapy was switched to Aubagio in early 2017. While on Aubagio, she developed enhancing brain lesions. She started Gilenya about 3 years ago. Received Pfeizer Covid vaccine in November 2020. I personally reviewed Brain MRI performed at [facility] on 02/15/2020 and this showed extensive periventricular, and callosal white matter disease. Also noticeable is the corpus callosum atrophy, as well as moderate to severe brain atrophy, as well as ventriculomegaly. There are no areas of abnormal enhancement enhancement, and there is resolution of previously seen active enhancing lesions.DMT history:Avonex 1996-2001Betaseron 2001-2004Copaxone [id number] Gilenya 2018- currentShe denies lhermitte's, but does have uhthoff's. After warm shower can cause transient heaviness, and numbness of the right leg. Bowel function is normal. She does have Intermittent bladder incontinence and urgency. Progressive difficulty with gait and balance for the last 3 years. She is using a wheeled walker. Denies falls. Intermittent mild to moderate fatigue. Denies depression. Complains of short-term memory loss, word finding difficulties. Also have minor difficulty with organizing and multitasking.She has had no recent falls, or urinary tract infection. Appetite is ok.Interval history 07/08/21:In the interval since her last visit, she has had no relapses, new neurologic symptoms. She does reiterate visual symptoms that are not new including intermittent blurring, and visual field defects. slo complains of short-term memory loss, and word-finding difficulties.Using wheeled walker. All above symptoms are not new to her.Interval history 01/06/22Clementina presents for follow-up today regarding MS and assessment of immunotherapy. Accompanied by her very supportive Scott. Mccarthy, tolerates medication well without major side effects. She denies new visual symptoms. On her last visit in June, her absolute lymphocyte count was low at 0.18 therefore the dose of Gilenya was was decreased to every other day. She denies relapses with the new dose of Gilenya. We will need follow-up blood work today including CBC and CMP. Primary physician gave her trazodone to help with sleep but she is not comfortable taking this medication until discussed with me.Interval history 04/07/22In the interval since her last visit, she has had no relapses, new neurologic symptoms or progression.Lymphocyte count in June 2021 was low at 0.1, improved to 0.27 in December 2021.Currently on Gilenya every other dayGets mammogram yearly pap smear regualrly with PCpHash had no skin examination in many yearsrecived 2 doses of COVID vaccine, planning first booster soon.Interval history 08/29/22In the interval since her last visit, she has had no relapses, new neurologic symptoms or progression.Takes gilenya every ogher day due to persistenty low ALCLast ine 3 months ago was 0.3No new concernsInterval history 12/15/2022eborah presents for follow-up today regarding MS and assessment of immunotherapy. She was previously on Gilenya however she had persistently low absolute lymphocyte count and had a poor clinical response to the drug therefore she switched to Ocrevus.Clementina receiving her first Ocrevus infusion today.Interval history 03/16/2023eborah presents for follow-up today regarding MS and assessment of immunotherapy. In the interval since her last visit, she has had no relapses, no neurological symptoms, no disease progression. Her next Ocrevus infusion is in June. She tolerates Ocrevus well without major side effects.Mammogram performed 01/14/2023, no evidence of malignancyInterval history 3Debkristin presents for follow-up today regarding MS, and assessment of immunotherapy, on May 18, she awoke with severe dizziness. She went to emergency department was given 1 dose of intravenous Solu-Medrol and a prednisone taper. Her dizziness lasted for about 2 days but got significantly better after steroids. She is due for blood work. She is due for follow-up brain MRI. She will also receive her Ocrevus infusion today.Interval history 08/25/2023eb presents for follow-up today regarding MS and assessment of immunotherapy. Her next Ocrevus infusion is in November 2023. In the interval since her last visit, she has had no relapses, no neurological symptoms, or disease progression. Follow-up brain and cervical MRI in June 2023 stable. She have no new concerns.Interval history 12/07/23Presents for video visit. She is currently having her Ocrevus infusion done at [address] She tolerates ocrelizumab well without major side effect. In the interval since her last visit, she has had no relapses, no neurological symptoms, or disease progression. Her last MRI done in June 2023 are stable. No new concerns.Interval history 02/15/24Clementina presents for follow up regarding MS and assessment of immunotherapy. She tolerates ocrelizumab well without major side effects. In the interval since her last visit, she has had no relapses, no neurological symptoms, or disease progression. Her last MRI done in June 2023 are stable.States recently developed mild anxiety, and difficulty sleeping. Due for blood work, MRI will be done before the year ends. Shaheen Lopez MD [address] [facility], [place], [address], [place] [facility] 04/06/2024 13:12:33 4 text/html Maegan Tucker is a 58-year-old woman, I am seeing for follow-up regarding MS, and assessment of immunotherapy.Previous clinic notes 02/15/24Carlossonya Tucker is a 58-year-old woman, I am seeing for follow-up regarding MS and assessment of immunotherapyPrevious clinic notes 12/15/22:Social hx: Clementina is a woman from [place]. 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 She e has had no episodes eye trauma or surgery.PMHx: healthy except for MS. She have no history of HIV, hepatitis, TB, or any malignancy. She also denies heart, kidney, and liver disease.Family hx:. Her mother passed from complications of stroke. She also had type 2 diabetes. Her dad also from stroke he had hypertension, coronary artery disease.Clinical course:She goes by Clementina. develop balance issues in 1994. A few months after delivering her baby in March 1997, she developed right optic neuritis. Treated with intravenous Solu-Medrol. Duration of going back to baseline within 2 weeks. Brain MRI, and lumbar puncture was done at that time which apparently were consistent with multiple sclerosis. 1996, she was started on Avonex. Bridge, she had 3 relapses following Avonex during the first 5years therapy. Because of poor clinical response to Avonex, she also tried Copaxone and Betaseron. In 2016, it was thoiught that he disease have progressed therefore other DMTs were discussed. Her disease modifying therapy was switched to Aubagio in early 2017. While on Aubagio, she developed enhancing brain lesions. She started Gilenya about 3 years ago. Received Pfeizer Covid vaccine in November 2020. I personally reviewed Brain MRI performed at [facility] on 02/15/2020 and this showed extensive periventricular, and callosal white matter disease. Also noticeable is the corpus callosum atrophy, as well as moderate to severe brain atrophy, as well as ventriculomegaly. There are no areas of abnormal enhancement enhancement, and there is resolution of previously seen active enhancing lesions.DMT history:Avonex 1996-2001Betaseron 2001-2004Copaxone [id number] Gilenya 2018- currentShe denies lhermitte's, but does have uhthoff's. After warm shower can cause transient heaviness, and numbness of the right leg. Bowel function is normal. She does have Intermittent bladder incontinence and urgency. Progressive difficulty with gait and balance for the last 3 years. She is using a wheeled walker. Denies falls. Intermittent mild to moderate fatigue. Denies depression. Complains of short-term memory loss, word finding difficulties. Also have minor difficulty with organizing and multitasking.She has had no recent falls, or urinary tract infection. Appetite is ok.Interval history 07/08/21:In the interval since her last visit, she has had no relapses, new neurologic symptoms. She does reiterate visual symptoms that are not new including intermittent blurring, and visual field defects. slo complains of short-term memory loss, and word-finding difficulties.Using wheeled walker. All above symptoms are not new to her.Interval history 01/06/22Clementina presents for follow-up today regarding MS and assessment of immunotherapy. Accompanied by her very supportive Scott. Mccarthy, tolerates medication well without major side effects. She denies new visual symptoms. On her last visit in June, her absolute lymphocyte count was low at 0.18 therefore the dose of Gilenya was was decreased to every other day. She denies relapses with the new dose of Gilenya. We will need follow-up blood work today including CBC and CMP. Primary physician gave her trazodone to help with sleep but she is not comfortable taking this medication until discussed with me.Interval history 04/07/22In the interval since her last visit, she has had no relapses, new neurologic symptoms or progression.Lymphocyte count in June 2021 was low at 0.1, improved to 0.27 in December 2021.Currently on Gilenya every other dayGets mammogram yearly pap smear regualrly with PCpHash had no skin examination in many yearsrecived 2 doses of COVID vaccine, planning first booster soon.Interval history 08/29/22In the interval since her last visit, she has had no relapses, new neurologic symptoms or progression.Takes gilenya every ogher day due to persistenty low ALCLast ine 3 months ago was 0.3No new concernsInterval history 12/15/2022ebkristin presents for follow-up today regarding MS and assessment of immunotherapy. She was previously on Gilenya however she had persistently low absolute lymphocyte count and had a poor clinical response to the drug therefore she switched to Ocrevus.Clementina receiving her first Ocrevus infusion today.Interval history 03/16/2023ebkristin presents for follow-up today regarding MS and assessment of immunotherapy. In the interval since her last visit, she has had no relapses, no neurological symptoms, no disease progression. Her next Ocrevus infusion is in June. She tolerates Ocrevus well without major side effects.Mammogram performed 01/14/2023, no evidence of malignancyInterval history 06/09/2023ebkristin presents for follow-up today regarding MS, and assessment of immunotherapy, on May 18, she awoke with severe dizziness. She went to emergency department was given 1 dose of intravenous Solu-Medrol and a prednisone taper. Her dizziness lasted for about 2 days but got significantly better after steroids. She is due for blood work. She is due for follow-up brain MRI. She will also receive her Ocrevus infusion today.Interval history 08/25/2023 presents for follow-up today regarding MS and assessment of immunotherapy. Her next Ocrevus infusion is in November 2023. In the interval since her last visit, she has had no relapses, no neurological symptoms, or disease progression. Follow-up brain and cervical MRI in June 2023 stable. She have no new concerns.Interval history 12/07/23Presents for video visit. She is currently having her Ocrevus infusion done at [address] She tolerates ocrelizumab well without major side effect. In the interval since her last visit, she has had no relapses, no neurological symptoms, or disease progression. Her last MRI done in June 2023 are stable. No new concerns.Interval history 02/15/24Carlosfredrick presents for follow up regarding MS and assessment of immunotherapy. She tolerates ocrelizumab well without major side effects. In the interval since her last visit, she has had no relapses, no neurological symptoms, or disease progression. Her last MRI done in June 2023 are stable.States recently developed mild anxiety, and difficulty sleeping. Due for blood work, MRI will be done before the year ends. Interval history 05/10/24Carlossonamfredrick presents for follow up regarding MS and assessment of immunotherapy. She tolerates ocrelizumab well without major side effects. Follow up brain MRI in June 2023 is stable.She unfortunately acquired covid infection, followed by pneumonia about 6 weeks ago. S9nce these infections, noticed more issues with walking, and balance. Brain MRI 07/02/23Supratentorial and infratentorial white matter lesions inkeeping with provided history of multiple sclerosis. Overallstable lesion burden with no enhancement to suggest activedemyelination. 2. Stable lateral and third ventriculomegaly disproportionate tosulcal prominence as can be seen with normal pressurehydrocephalus or chronic aqueductal stenosis. Cervical MRI . Motion degraded exam2. Within study limits, chronic demyelinating plaques appearstable with no new plaque or enhancement to suggest activedemyelination C2, C2-C32. Stable cervical degenerative disc disease, uncovertebralspurring and facet hypertrophy including up to moderate canalstenosis at C5-6 and multilevel moderate foraminal stenosis. Shaheen Lopez MD [facility] [place] [address], [phone], [facility] 05/16/2024 09:01:20 4 text/html Maegan Tucker is a 58-year-old woman, I am seeing for follow-up regarding MS, and assessment of immunotherapy.Previous clinic notes 05/10/24Lashell Tucker is a 58-year-old woman, I am seeing for follow-up regarding MS and assessment of immunotherapyPrevious clinic notes 12/15/22:Social hx: Clementina is a woman from [place]. 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 She e has had no episodes eye trauma or surgery.PMHx: healthy except for MS. She have no history of HIV, hepatitis, TB, or any malignancy. She also denies heart, kidney, and liver disease.Family hx:. Her mother passed from complications of stroke. She also had type 2 diabetes. Her dad also from stroke he had hypertension, coronary artery disease.Clinical course:She goes by Clementina. develop balance issues in 1994. A few months after delivering her baby in March 1997, she developed right optic neuritis. Treated with intravenous Solu-Medrol. Duration of going back to baseline within 2 weeks. Brain MRI, and lumbar puncture was done at that time which apparently were consistent with multiple sclerosis. 1996, she was started on Avonex. Bridge, she had 3 relapses following Avonex during the first 5years therapy. Because of poor clinical response to Avonex, she also tried Copaxone and Betaseron. In 2016, it was thoiught that he disease have progressed therefore other DMTs were discussed. Her disease modifying therapy was switched to Aubagio in early 2017. While on Aubagio, she developed enhancing brain lesions. She started Gilenya about 3 years ago. Received Pfeizer Covid vaccine in November 2020. I personally reviewed Brain MRI performed at [facility] on 02/15/2020 and this showed extensive periventricular, and callosal white matter disease. Also noticeable is the corpus callosum atrophy, as well as moderate to severe brain atrophy, as well as ventriculomegaly. There are no areas of abnormal enhancement enhancement, and there is resolution of previously seen active enhancing lesions.DMT history:Avonex 1996-2001Betaseron 2001-2004Copaxone [id number] Gilenya 2018- currentShe denies lhermitte's, but does have uhthoff's. After warm shower can cause transient heaviness, and numbness of the right leg. Bowel function is normal. She does have Intermittent bladder incontinence and urgency. Progressive difficulty with gait and balance for the last 3 years. She is using a wheeled walker. Denies falls. Intermittent mild to moderate fatigue. Denies depression. Complains of short-term memory loss, word finding difficulties. Also have minor difficulty with organizing and multitasking.She has had no recent falls, or urinary tract infection. Appetite is ok.Interval history 07/08/21:In the interval since her last visit, she has had no relapses, new neurologic symptoms. She does reiterate visual symptoms that are not new including intermittent blurring, and visual field defects. slo complains of short-term memory loss, and word-finding difficulties.Using wheeled walker. All above symptoms are not new to her.Interval history 01/06/22Clementina presents for follow-up today regarding MS and assessment of immunotherapy. Accompanied by her very supportive Scott. Mccarthy, tolerates medication well without major side effects. She denies new visual symptoms. On her last visit in June, her absolute lymphocyte count was low at 0.18 therefore the dose of Gilenya was was decreased to every other day. She denies relapses with the new dose of Gilenya. We will need follow-up blood work today including CBC and CMP. Primary physician gave her trazodone to help with sleep but she is not comfortable taking this medication until discussed with me.Interval history 04/07/22In the interval since her last visit, she has had no relapses, new neurologic symptoms or progression.Lymphocyte count in June 2021 was low at 0.1, improved to 0.27 in December 2021.Currently on Gilenya every other dayGets mammogram yearly pap smear regualrly with PCpHash had no skin examination in many yearsrecived 2 doses of COVID vaccine, planning first booster soon.Interval history 08/29/22In the interval since her last visit, she has had no relapses, new neurologic symptoms or progression.Takes gilenya every ogher day due to persistenty low ALCLast ine 3 months ago was 0.3No new concernsInterval history 12/15/2022h presents for follow-up today regarding MS and assessment of immunotherapy. She was previously on Gilenya however she had persistently low absolute lymphocyte count and had a poor clinical response to the drug therefore she switched to Ocrevus.Clementina receiving her first Ocrevus infusion today.Interval history 03/16/2023 presents for follow-up today regarding MS and assessment of immunotherapy. In the interval since her last visit, she has had no relapses, no neurological symptoms, no disease progression. Her next Ocrevus infusion is in June. She tolerates Ocrevus well without major side effects.Mammogram performed 01/14/2023, no evidence of malignancyInterval history 06/09/2023ebora presents for follow-up today regarding MS, and assessment of immunotherapy, on May 18, she awoke with severe dizziness. She went to emergency department was given 1 dose of intravenous Solu-Medrol and a prednisone taper. Her dizziness lasted for about 2 days but got significantly better after steroids. She is due for blood work. She is due for follow-up brain MRI. She will also receive her Ocrevus infusion today.Interval history 08/25/2023 presents for follow-up today regarding MS and assessment of immunotherapy. Her next Ocrevus infusion is in November 2023. In the interval since her last visit, she has had no relapses, no neurological symptoms, or disease progression. Follow-up brain and cervical MRI in June 2023 stable. She have no new concerns.Interval history 12/07/23Presents for video visit. She is currently having her Ocrevus infusion done at [address] She tolerates ocrelizumab well without major side effect. In the interval since her last visit, she has had no relapses, no neurological symptoms, or disease progression. Her last MRI done in June 2023 are stable. No new concerns.Interval history 02/15/24Clementina presents for follow up regarding MS and assessment of immunotherapy. She tolerates ocrelizumab well without major side effects. In the interval since her last visit, she has had no relapses, no neurological symptoms, or disease progression. Her last MRI done in June 2023 are stable.States recently developed mild anxiety, and difficulty sleeping. Due for blood work, MRI will be done before the year ends.Interval history 05/10/24Clementina presents for follow up regarding MS and assessment of immunotherapy. She tolerates ocrelizumab well without major side effects. Follow up brain MRI in June 2023 is stable.She unfortunately acquired covid infection, followed by pneumonia about 6 weeks ago. S9nce these infections, noticed more issues with walking, and balance.Brain MRI 07/02/23Supratentorial and infratentorial white matter lesions inkeeping with provided history of multiple sclerosis. Overallstable lesion burden with no enhancement to suggest activedemyelination. 2. Stable lateral and third ventriculomegaly disproportionate tosulcal prominence as can be seen with normal pressurehydrocephalus or chronic aqueductal stenosis.Cervical MRI . Motion degraded exam2. Within study limits, chronic demyelinating plaques appearstable with no new plaque or enhancement to suggest activedemyelination C2, C2-C32. Stable cervical degenerative disc disease, uncovertebralspurring and facet hypertrophy including up to moderate canalstenosis at C5-6 and multilevel moderate foraminal stenosis. Interval History 05/24/24Clementina presents for follow up regarding MS and assessment of immunotherapy. Follow up brain MRI in June 2023 are stable.On her last Ocrevus infusion, her face, and body turned red, and she had numbness in her legs for many days. She wants to discontinue Ocrevus, and Try kesimpta.Her next ocrevus infusion is supposedly in 2 weeks. Recent labs 05/17/24- abnormal U/A, 2+ RBC leukocytes, and esterase.Labs : Negative TB, HIV, hepatitisVaricella IgG positive Shaheen Lopez MD [address] [place] [address], [id number], [place] [facility] 05/25/2024 12:42:21 4 text/html Maegan Tucker is a 59-year-old woman, I am seeing for follow-up regarding MS, and assessment of immunotherapy.Previous clinic notes 05/24/24Lashell Tucker is a 58-year-old woman, I am seeing for follow-up regarding MS and assessment of immunotherapyPrevious clinic notes 12/15/22:Social hx: Clementina is a woman from [place]. 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 She e has had no episodes eye trauma or surgery.PMHx: healthy except for MS. She have no history of HIV, hepatitis, TB, or any malignancy. She also denies heart, kidney, and liver disease.Family hx:. Her mother passed from complications of stroke. She also had type 2 diabetes. Her dad also from stroke he had hypertension, coronary artery disease.Clinical course:She goes by Clementina. develop balance issues in 1994. A few months after delivering her baby in March 1997, she developed right optic neuritis. Treated with intravenous Solu-Medrol. Duration of going back to baseline within 2 weeks. Brain MRI, and lumbar puncture was done at that time which apparently were consistent with multiple sclerosis. 1996, she was started on Avonex. Bridge, she had 3 relapses following Avonex during the first 5years therapy. Because of poor clinical response to Avonex, she also tried Copaxone and Betaseron. In 2016, it was thoiught that he disease have progressed therefore other DMTs were discussed. Her disease modifying therapy was switched to Aubagio in early 2017. While on Aubagio, she developed enhancing brain lesions. She started Gilenya about 3 years ago. Received Pfeizer Covid vaccine in November 2020. I personally reviewed Brain MRI performed at [facility] on 02/15/2020 and this showed extensive periventricular, and callosal white matter disease. Also noticeable is the corpus callosum atrophy, as well as moderate to severe brain atrophy, as well as ventriculomegaly. There are no areas of abnormal enhancement enhancement, and there is resolution of previously seen active enhancing lesions.DMT history:Avonex 1996-2001Betaseron 2001-2004Copaxone [id number] Gilenya 2018- currentShe denies lhermitte's, but does have uhthoff's. After warm shower can cause transient heaviness, and numbness of the right leg. Bowel function is normal. She does have Intermittent bladder incontinence and urgency. Progressive difficulty with gait and balance for the last 3 years. She is using a wheeled walker. Denies falls. Intermittent mild to moderate fatigue. Denies depression. Complains of short-term memory loss, word finding difficulties. Also have minor difficulty with organizing and multitasking.She has had no recent falls, or urinary tract infection. Appetite is ok.Interval history 07/08/21:In the interval since her last visit, she has had no relapses, new neurologic symptoms. She does reiterate visual symptoms that are not new including intermittent blurring, and visual field defects. slo complains of short-term memory loss, and word-finding difficulties.Using wheeled walker. All above symptoms are not new to her.Interval history 01/06/22Clementina presents for follow-up today regarding MS and assessment of immunotherapy. Accompanied by her very supportive Scott. Mccarthy, tolerates medication well without major side effects. She denies new visual symptoms. On her last visit in June, her absolute lymphocyte count was low at 0.18 therefore the dose of Gilenya was was decreased to every other day. She denies relapses with the new dose of Gilenya. We will need follow-up blood work today including CBC and CMP. Primary physician gave her trazodone to help with sleep but she is not comfortable taking this medication until discussed with me.Interval history 04/07/22In the interval since her last visit, she has had no relapses, new neurologic symptoms or progression.Lymphocyte count in June 2021 was low at 0.1, improved to 0.27 in December 2021.Currently on Gilenya every other dayGets mammogram yearly pap smear regualrly with PCpHash had no skin examination in many yearsrecived 2 doses of COVID vaccine, planning first booster soon.Interval history 08/29/22In the interval since her last visit, she has had no relapses, new neurologic symptoms or progression.Takes gilenya every ogher day due to persistenty low ALCLast ine 3 months ago was 0.3No new concernsInterval history 12/15/2022eborah presents for follow-up today regarding MS and assessment of immunotherapy. She was previously on Gilenya however she had persistently low absolute lymphocyte count and had a poor clinical response to the drug therefore she switched to Ocrevus.Clementina receiving her first Ocrevus infusion today.Interval history 03/16/2023 presents for follow-up today regarding MS and assessment of immunotherapy. In the interval since her last visit, she has had no relapses, no neurological symptoms, no disease progression. Her next Ocrevus infusion is in June. She tolerates Ocrevus well without major side effects.Mammogram performed 01/14/2023, no evidence of malignancyInterval history 06/09/2023eborah presents for follow-up today regarding MS, and assessment of immunotherapy, on May 18, she awoke with severe dizziness. She went to emergency department was given 1 dose of intravenous Solu-Medrol and a prednisone taper. Her dizziness lasted for about 2 days but got significantly better after steroids. She is due for blood work. She is due for follow-up brain MRI. She will also receive her Ocrevus infusion today.Interval history 08/25/2023 presents for follow-up today regarding MS and assessment of immunotherapy. Her next Ocrevus infusion is in November 2023. In the interval since her last visit, she has had no relapses, no neurological symptoms, or disease progression. Follow-up brain and cervical MRI in June 2023 stable. She have no new concerns.Interval history 12/07/23Presents for video visit. She is currently having her Ocrevus infusion done at [facility], [address] [place] [address]. She tolerates ocrelizumab well without major side effect. In the interval since her last visit, she has had no relapses, no neurological symptoms, or disease progression. Her last MRI done in June 2023 are stable. No new concerns.Interval history 02/15/24Clementina presents for follow up regarding MS and assessment of immunotherapy. She tolerates ocrelizumab well without major side effects. In the interval since her last visit, she has had no relapses, no neurological symptoms, or disease progression. Her last MRI done in June 2023 are stable.States recently developed mild anxiety, and difficulty sleeping. Due for blood work, MRI will be done before the year ends.Interval history 05/10/24Clementina presents for follow up regarding MS and assessment of immunotherapy. She tolerates ocrelizumab well without major side effects. Follow up brain MRI in June 2023 is stable.She unfortunately acquired covid infection, followed by pneumonia about 6 weeks ago. S9nce these infections, noticed more issues with walking, and balance.Brain MRI 07/02/23Supratentorial and infratentorial white matter lesions inkeeping with provided history of multiple sclerosis. Overallstable lesion burden with no enhancement to suggest activedemyelination. 2. Stable lateral and third ventriculomegaly disproportionate tosulcal prominence as can be seen with normal pressurehydrocephalus or chronic aqueductal stenosis.Cervical MRI . Motion degraded exam2. Within study limits, chronic demyelinating plaques appearstable with no new plaque or enhancement to suggest activedemyelination C2, C2-C32. Stable cervical degenerative disc disease, uncovertebralspurring and facet hypertrophy including up to moderate canalstenosis at C5-6 and multilevel moderate foraminal stenosis.Interval History 05/24/24Clementina presents for follow up regarding MS and assessment of immunotherapy. Follow up brain MRI in June 2023 are stable.On her last Ocrevus infusion, her face, and body turned red, and she had numbness in her legs for many days. She wants to discontinue Ocrevus, and Try kesimpta.Her next ocrevus infusion is supposedly in 2 weeks.Recent labs 05/17/24- abnormal U/A, 2+ RBC leukocytes, and esterase.Labs : Negative TB, HIV, hepatitisVaricella IgG positive Interval history 09/01/24Clementina presents for follow up regarding MS and assessment of immunotherapy.On her last Ocrevus infusion, her face, and body turned red, and she had numbness in her legs. ocrevus was discontinued.She began Kesimpta in April 2024, tolerates the medication well without major side effects. In the interval since her last visit, she has had no relapses, no neurological symptoms, or disease progression. She is dealing with old MS symptoms including neurogenic bladder and occasional difficulty with difficulty with gait and balance. Shahene Lopez MD [address] [facility], [place], [id number], [place] [facility] 09/05/2024 06:59:19 5 text/html Maegan Tucker is a 59-year-old woman, I am seeing for follow-up regarding MS, and assessment of immunotherapy.Previous clinic notes 09/01/24Lashell Tucker is a 58-year-old woman, I am seeing for follow-up regarding MS and assessment of immunotherapyPrevious clinic notes 12/15/22:Social hx: Clementina is a woman from [place]. 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 She e has had no episodes eye trauma or surgery.PMHx: healthy except for MS. She have no history of HIV, hepatitis, TB, or any malignancy. She also denies heart, kidney, and liver disease.Family hx:. Her mother passed from complications of stroke. She also had type 2 diabetes. Her dad also from stroke he had hypertension, coronary artery disease.Clinical course:She goes by Clementina. develop balance issues in 1994. A few months after delivering her baby in March 1997, she developed right optic neuritis. Treated with intravenous Solu-Medrol. Duration of going back to baseline within 2 weeks. Brain MRI, and lumbar puncture was done at that time which apparently were consistent with multiple sclerosis. 1996, she was started on Avonex. Bridge, she had 3 relapses following Avonex during the first 5years therapy. Because of poor clinical response to Avonex, she also tried Copaxone and Betaseron. In 2016, it was thoiught that he disease have progressed therefore other DMTs were discussed. Her disease modifying therapy was switched to Aubagio in early 2017. While on Aubagio, she developed enhancing brain lesions. She started Gilenya about 3 years ago. Received Pfeizer Covid vaccine in November 2020. I personally reviewed Brain MRI performed at [facility] on 02/15/2020 and this showed extensive periventricular, and callosal white matter disease. Also noticeable is the corpus callosum atrophy, as well as moderate to severe brain atrophy, as well as ventriculomegaly. There are no areas of abnormal enhancement enhancement, and there is resolution of previously seen active enhancing lesions.DMT history:Avonex 1996-2001Betaseron 2001-2004Copaxone [id number]-[id number] Gilenya 2018- currentShe denies lhermitte's, but does have uhthoff's. After warm shower can cause transient heaviness, and numbness of the right leg. Bowel function is normal. She does have Intermittent bladder incontinence and urgency. Progressive difficulty with gait and balance for the last 3 years. She is using a wheeled walker. Denies falls. Intermittent mild to moderate fatigue. Denies depression. Complains of short-term memory loss, word finding difficulties. Also have minor difficulty with organizing and multitasking.She has had no recent falls, or urinary tract infection. Appetite is ok.Interval history 07/08/21:In the interval since her last visit, she has had no relapses, new neurologic symptoms. She does reiterate visual symptoms that are not new including intermittent blurring, and visual field defects. slo complains of short-term memory loss, and word-finding difficulties.Using wheeled walker. All above symptoms are not new to her.Interval history 01/06/22Clementina presents for follow-up today regarding MS and assessment of immunotherapy. Accompanied by her very supportive Scott. Mccarthy, tolerates medication well without major side effects. She denies new visual symptoms. On her last visit in June, her absolute lymphocyte count was low at 0.18 therefore the dose of Gilenya was was decreased to every other day. She denies relapses with the new dose of Gilenya. We will need follow-up blood work today including CBC and CMP. Primary physician gave her trazodone to help with sleep but she is not comfortable taking this medication until discussed with me.Interval history 04/07/22In the interval since her last visit, she has had no relapses, new neurologic symptoms or progression.Lymphocyte count in June 2021 was low at 0.1, improved to 0.27 in December 2021.Currently on Gilenya every other dayGets mammogram yearly pap smear regualrly with PCpHash had no skin examination in many yearsrecived 2 doses of COVID vaccine, planning first booster soon.Interval history 08/29/22In the interval since her last visit, she has had no relapses, new neurologic symptoms or progression.Takes gilenya every ogher day due to persistenty low ALCLast ine 3 months ago was 0.3No new concernsInterval history 12/15/2022eborah presents for follow-up today regarding MS and assessment of immunotherapy. She was previously on Gilenya however she had persistently low absolute lymphocyte count and had a poor clinical response to the drug therefore she switched to Ocrevus.Clementina receiving her first Ocrevus infusion today.Interval history 03/16/2023orah presents for follow-up today regarding MS and assessment of immunotherapy. In the interval since her last visit, she has had no relapses, no neurological symptoms, no disease progression. Her next Ocrevus infusion is in June. She tolerates Ocrevus well without major side effects.Mammogram performed 01/14/2023, no evidence of malignancyInterval history 06/09/2023eborah presents for follow-up today regarding MS, and assessment of immunotherapy, on May 18, she awoke with severe dizziness. She went to emergency department was given 1 dose of intravenous Solu-Medrol and a prednisone taper. Her dizziness lasted for about 2 days but got significantly better after steroids. She is due for blood work. She is due for follow-up brain MRI. She will also receive her Ocrevus infusion today.Interval history 08/25/2023 presents for follow-up today regarding MS and assessment of immunotherapy. Her next Ocrevus infusion is in November 2023. In the interval since her last visit, she has had no relapses, no neurological symptoms, or disease progression. Follow-up brain and cervical MRI in June 2023 stable. She have no new concerns.Interval history 12/07/23Presents for video visit. She is currently having her Ocrevus infusion done at [facility], [address] [place] [address]. She tolerates ocrelizumab well without major side effect. In the interval since her last visit, she has had no relapses, no neurological symptoms, or disease progression. Her last MRI done in June 2023 are stable. No new concerns.Interval history 02/15/24Clementina presents for follow up regarding MS and assessment of immunotherapy. She tolerates ocrelizumab well without major side effects. In the interval since her last visit, she has had no relapses, no neurological symptoms, or disease progression. Her last MRI done in June 2023 are stable.States recently developed mild anxiety, and difficulty sleeping. Due for blood work, MRI will be done before the year ends.Interval history 05/10/24Clementina presents for follow up regarding MS and assessment of immunotherapy. She tolerates ocrelizumab well without major side effects. Follow up brain MRI in June 2023 is stable.She unfortunately acquired covid infection, followed by pneumonia about 6 weeks ago. S9nce these infections, noticed more issues with walking, and balance.Brain MRI 07/02/23Supratentorial and infratentorial white matter lesions inkeeping with provided history of multiple sclerosis. Overallstable lesion burden with no enhancement to suggest activedemyelination. 2. Stable lateral and third ventriculomegaly disproportionate tosulcal prominence as can be seen with normal pressurehydrocephalus or chronic aqueductal stenosis.Cervical MRI . Motion degraded exam2. Within study limits, chronic demyelinating plaques appearstable with no new plaque or enhancement to suggest activedemyelination C2, C2-C32. Stable cervical degenerative disc disease, uncovertebralspurring and facet hypertrophy including up to moderate canalstenosis at C5-6 and multilevel moderate foraminal stenosis.Interval History 05/24/24Clementina presents for follow up regarding MS and assessment of immunotherapy. Follow up brain MRI in June 2023 are stable.On her last Ocrevus infusion, her face, and body turned red, and she had numbness in her legs for many days. She wants to discontinue Ocrevus, and Try kesimpta.Her next ocrevus infusion is supposedly in 2 weeks.Recent labs 05/17/24- abnormal U/A, 2+ RBC leukocytes, and esterase.Labs : Negative TB, HIV, hepatitisVaricella IgG positive Interval history 09/01/24Clementina presents for follow up regarding MS and assessment of immunotherapy.On her last Ocrevus infusion, her face, and body turned red, and she had numbness in her legs. ocrevus was discontinued.She began Kesimpta in April 2024, tolerates the medication well without major side effects.In the interval since her last visit, she has had no relapses, no neurological symptoms, or disease progression.She is dealing with old MS symptoms including neurogenic bladder and occasional difficulty with difficulty with gait and balance. Interval history 12/14/24Shmouna began Kesimpta in April 2024, tolerates the medication well without major side effects.In the interval since her last visit, she has had no relapses, no neurological symptoms, or disease progression. She is due for blood work today. She is due for follow-up MRI before the year ends. Shaheen Lopez MD [address] [place] [address], [id number], [facility] 12/15/2024 12:09:36 OBGyn Episode No OBEpisode recorded.
--- OUTSIDE RECORDS SUMMARY | 2025-02-10 14:33 | XMS_ITS | Continuity of Care Document ---
Author Organization [facility] Address [address] [place] [address] Phone Care Team Providers Care Gear Tester Name Role Phone Lora Brewer Unavailable Unavailable Advance Directives Directive Yes / No Effective Date File Name No Information Encounters Encounter Description Practice Location Reason(s) For Visit Diagnoses Date Provider Providers Copied on Encounter [facility], [address], [place], [place], [id number], [place] tel:[phone] [facility] No Information [id number] Daniella Paulino. [address] , [address], [place], [address], [place]. tel:[phone] Referring Provider: Sofia Adorno MD, [address] [place] [address], [address]. tel:[phone] Family History Family Member Type Diagnosis Age At Onset No Information Payers Payer name Insurance type Covered constitution party ID Authoriza tion(s) No Information Social History Type Description Quantity Date Captured Comments Sex Female Smoking Status No Information Chief Complaint And Reason For Visit No Information Reason For Referral Reason For Referral No Information History Of Present Illness Encounter Date Complaint History Of Prese nt Illness No Information Functional Status Date Functional Assessmen t No Information Instructions Date Instruction Additional Infor mation No Information Assessments Type Assessment Date No Information Patient Care Teams Name Effective Dates (start - stop) Status Members No Information
--- OUTSIDE RECORDS SUMMARY | 2025-02-10 14:33 | XMS_ITS | Clinical Summary ---
Author Organization [facility] Address [address] [place] [address] Care Team Providers Care Operator Weapon Locating Radar Name Role Phone Sofia Adorno MD Primary Care Provider + Allergies No known active allergies Medications PARoxetine HCl (PAXIL) 40 mg tablet TAKE 1 TABLET BY MOUTH EVERY DAY 0 8 Active atorvastatin (LIPITOR) 40 mg tablet Take 40 mg by mouth daily with supper. Active SUMAtriptan (IMITREX) 100 mg tablet Take 100 mg by mouth 1 time daily as needed. may repeat in 2 hours; max dose 200mg in 24 hours Active fingolimod (GILENYA) 0.5 mg Capsule Take 0.5 mg by mouth daily. 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 Family History Medical History Relation Name Comments Heart Disease Father High Cholesterol Father Hypertension Father Melanoma Father Stroke Father Colon Cancer Maternal Grandfather Breast Cancer Maternal Grandmother Depression Mother Diabetes Mother Relation Name Status Comments Father Maternal Grandfather Maternal Grandmother Mother Social History Tobacco Use Types Packs/Day Years Used Date Smoking Tobacco: Former Cigarettes 1 10 0 03/05/1982 - 03/05/1992 Smokeless Tobacco: Never Alcohol Use Standard Drinks/Week Comments Yes 0 (1 standard drink = 0.6 oz pur e alcohol) occasionally Comments No Sex and Gender Information Value Date Recorded Sex Assigned at Not on file Legal Sex Female 1:08 PM CDT Gender Identity Not on file Sexual Orientation Not on file Last Filed Vital Signs Vital Sign Reading Time Taken Comments Blood Pressure 122/85 03/27/2021 12:59 PM CDT Pulse 64 03/27/2021 12:59 PM CDT Temperature 36.5 C (97.7 F) 03/27/2021 12:59 PM CDT Respiratory Rate 18 11/11/2018 1:23 PM CMM PROGRAMMER Oxygen Saturation 97% 03/27/2021 12: 59 PM CDT Inhaled Oxygen Concentration - - Weight 90.6 kg (199 lb 11.2 oz) 021 12:59 PM CDT Height 157.5 cm (5' 2) 03/27/2021 12:5 9 PM CDT Body Mass Index 36.53 03/27/2021 12:59 PM CDT Plan of Treatment Health Maintenance Due Date Last Done Comments DTAP/TDAP/TD VACCINES (1 - Tdap) 1984 HEPATITIS B VACCINES (1 of 3 - 19+ 3-dose series) 1984 ZOSTER VACCINE (1 of 2) 1984 HPV/Cotest (21-29) 1986 HPV/Cotest (30-65) 1995 COLORECTAL SCREENING 2010 Colorectal Cancer Screening 2010 FIT-DNA Q 3 years 2010 FIT/FOBT Q 1 year 2010 Flex Sig/CT Colonography Q 5 years 2010 BREAST CANCER SCREENING 01/09/2023 01/10/20 22, 01/09/2022, 11/15/2020, Additional history exists CERVICAL CANCER SCREENING 11/01/2023 PAP SMEAR 11/01/2023 11/01/2020, 09/01/2019 INFLUENZA VACCINE (#1) 2024 Insurance MEDICARE PART A AND B MEDICARE PART A AND B GENERIC PAYOR Care Teams Operator Weapon Locating Radar Relationship Specialty Start Date End Date Sofia Adorno MD [address] [place] [address] PCP - General Internal Medicine 03/05/18
== END 2025-02-10 14:28 | disposition home or self-care (01) ==
LOC: CHSIMG 14:29
PROVIDERS: PCP Internal Medicine; Visit Provider Internal Medicine
DX: Z12.31 Encounter for screening mammogram for malignant neoplasm of breast (principal)
CPT/HCPCS: 77063; 77067